=== PATIENT | male | born 1960 | race Caucasian/White ===

== ENCOUNTER 2019-07-24 14:28 | Emergency (ER) | payer OTHER ==
[~2019-07-24] VITALS: Ht 180.3 cm; Wt 80.7 kg
[2019-07-24 14:33] VITALS: BP 178/99
[2019-07-24 15:21] LABS: ABSOLUTE EOSINOPHILS 0.2 thou/uL (0.0-0.7); ABSOLUTE LYMPHOCYTES 1.1 thou/uL (0.8-5.3); ABSOLUTE MONOCYTES 0.9 thou/uL (0.0-1.2); ABSOLUTE NEUTROPHILS 4.1 thou/uL (1.6-8.1); BASOPHILS 0.7 %; EOSINOPHILS 3.1 %; HEMATOCRIT 40.5 % (42.0-52.0); HEMOGLOBIN 14.1 gm/dL (14.0-18.0); LYMPHOCYTES 17.6 %; MCH 34.3 pg (26.0-34.0); MCHC 34.7 g/dL (28.0-37.0); MCV 98.6 fL (80.0-100.0); MONOCYTES 13.6 %; MPV 6.6 fl. (7.2-11.1); NUCLEATED RBCS 0 /100WBC; PLATELET COUNT* 157 thou/uL (150-400); RDW-CV 14.5 % (10.5-14.5); WBC 6.4 thou/uL (4.0-11.0)
[2019-07-24 15:26] LABS: CALCIUM 8.3 mg/dL (8.5-10.1); CREATININE 0.6 mg/dL (0.6-1.3); POTASSIUM 3.4 mmol/L (3.5-5.1)
[2019-07-24 15:32] LABS: URINE BILIRUBIN NEGATIVE (Negative); URINE BLOOD TRACE (Negative); URINE CLARITY CLEAR; URINE COLOR YELLOW; URINE GLUCOSE-RANDOM NEGATIVE (Negative); URINE KETONES NEGATIVE (Negative); URINE LEUKOCYTES-REFLEX NEGATIVE (Negative); URINE NITRITE-REFLEX NEGATIVE (Negative); URINE PROTEIN 1+ (Negative); URINE UROBILINOGEN 0.2 E.U./dl (0.2-1.0)
[2019-07-24 15:37] LABS: ALBUMIN 3.7 g/dL (3.4-5.0); TOTAL BILIRUBIN 0.2 mg/dL (<0.1-1.0); TOTAL PROTEIN 7.7 g/dL (6.4-8.2)
[2019-07-24 15:41] LABS: AMP/METHAMP Negative (Negative); BARBITURATES Negative (Negative); BENZODIAZEPINES Negative (Negative); COCAINE Negative (Negative); METHADONE Negative (Negative); OPIATES Negative (Negative); PCP Negative (Negative); THC Negative (Negative)
[2019-07-24] MEDS ORDERED: KEFLEX500 M2 PO (17:38)
[2019-07-24 18:01] VITALS: BP 143/80
--- NOTE | 2019-07-31 14:58 | EKG ---
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: : 1960 Requested By: Silvia Velásquez Order Number: [id number] MD: Jenaro Marks Measurements Intervals [place] Rate: 95 P: [place]: QRS: 53 QRSD: 92 T: 44 QT: 336 QTc: 423 Interpretive Statements sinus rhythm Baseline wander in lead(s) V3 No previous ECG available for comparison Electronically Signed On 07-25-2019 12:52:15 DELIVERY HELPER by Jenaro Marks [email or web address] <ELECTRONICALLY SIGNED> By: Jenaro Marks MD, [facility] 07/25/19 1252 1528 1528 Jenaro Marks MD, [facility] /EPI
== END 2019-07-24 18:04 | disposition left against medical advice (07) ==
LOC: M.ERS 14:28 → M.TBA-ER 16:41 → M.ERS 16:41
PROVIDERS: Physician Assistant
DX: L03.116 Cellulitis of left lower limb (principal); L03.115 Cellulitis of right lower limb; F10.129 Alcohol abuse with intoxication, unspecified; E87.2 Acidosis; R79.1 Abnormal coagulation profile; I10 Essential (primary) hypertension; F17.210 Nicotine dependence, cigarettes, uncomplicated; Y90.8 Blood alcohol level of 240 mg/100 ml or more

== ENCOUNTER 2019-11-04 09:54 | Inpatient (IN) | payer OTHER ==
[~2019-11-04] VITALS: Ht 182.9 cm; Wt 62.6 kg
--- NOTE | ~2019-11-04 | PROC ---
[address] [address] PROCEDURE REPORT Name: SUNDAR ANTOINE Room: [address] IN M.R.#: [id number] Admission: 11/04/19 Attend Phys: Deana Yeung MD Discharge: 11/06/19 Date of : 62 Report #: [id number] THIS REPORT FOR: //name// cc: Laly Bains MD, Diane S. MD ~ THIS REPORT FOR: //name// For GI report, please see the Provation report in Perceptive 7 content. By: 1038Medical Records Staff NINA /NOREEN
[~2019-11-04 09:54] MED LIST: KEFLEX500 M2 PO
[2019-11-04 09:58] VITALS: BP 109/87
[2019-11-04] MEDS ORDERED: KLOR-CON 10 ER10 MEQ PO (10:00)
[2019-11-04 10:28] LABS: ABSOLUTE LYMPHOCYTES 0.4 thou/uL (0.8-5.3); ABSOLUTE MONOCYTES 0.5 thou/uL (0.0-1.2); ABSOLUTE NEUTROPHILS 2.5 thou/uL (1.6-8.1); BASOPHILS 0.4 %; EOSINOPHILS 0.4 %; HEMATOCRIT 22.6 % (42.0-52.0); HEMOGLOBIN 7.2 gm/dL (14.0-18.0); LYMPHOCYTES 11.4 %; MCH 31.6 pg (26.0-34.0); MCHC 31.9 g/dL (28.0-37.0); MCV 98.9 fL (80.0-100.0); MONOCYTES 14.7 %; MPV 8.1 fl. (7.2-11.1); NUCLEATED RBCS 0 /100WBC; PLATELET COUNT* 214 thou/uL (150-400); POLYS 73.1 %; RBC 2.29 mil/uL (4.50-6.00); RDW-CV 21.9 % (10.5-14.5); WBC 3.5 thou/uL (4.0-11.0)
[2019-11-04 10:42] LABS: CALCIUM 7.3 mg/dL (8.5-10.1); CREATININE 0.9 mg/dL (0.6-1.3)
[2019-11-04 10:43] LABS: POTASSIUM 2.5 mmol/L (3.5-5.1)
[2019-11-04 10:59] LABS: HYPOCHROMASIA 2+; PLATELET ESTIMATE ADEQUATE
[2019-11-04 11:00] LABS: MICROCYTES 2+
--- NOTE | 2019-11-04 11:21 | NUR ---
IV INSERTED BY NITO MARTINS RN
[2019-11-04 12:00] LABS: ALBUMIN 2.5 g/dL (3.4-5.0); DIRECT BILIRUBIN 0.5 mg/dL (<0.1-0.3); TOTAL BILIRUBIN 1.1 mg/dL (<0.1-1.0); TOTAL PROTEIN 6.5 g/dL (6.4-8.2)
--- NOTE | 2019-11-04 14:20 | NUR ---
BLOOD TRANSFUSION STARTED AT 1357. SEE PAPER TRANSFUSION RECORD.
[2019-11-04 15:28] VITALS: BP 108/71
--- NOTE | 2019-11-04 17:10 | EKG ---
[place] [address] ELECTROCARDIOGRAM REPORT Name: CRUZ ANTOINEALL Room: [place] [address] ADM IN [facility]#: [id number] Admission: 11/04/19 Attend Phys: Deana Yeung, Discharge: Date of : 62 Date of Service: 11/04/19 1125 Report #: [id number] THIS REPORT FOR: //name// 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: : 1960 Requested By: Phillip Mercado Order Number: [id number] MD: Twan Hernandez Measurements Intervals [place] Rate: 97 P: 77 IN: 150 QRS: 55 QRSD: 78 T: 43 QT: 273 QTc: 347 Interpretive Statements Sinus rhythm Abnormal R-wave progression, early transition Borderline repolarization abnormality Compared to ECG 07/24/2019 15:28:14 No significant changes Electronically Signed On 11-04-2019 17:09:39 CDT by Twan Hernandez [email or web address] <ELECTRONICALLY SIGNED> By: Twan Hernandez MD, [facility] 11/04/19 1709 1125 1125 Twan Hernandez MD, [facility] /EPI
[2019-11-04 19:21] LABS: HEMATOCRIT 22.5 % (42.0-52.0); HEMOGLOBIN 7.5 gm/dL (14.0-18.0)
[2019-11-04 19:29] LABS: CREATININE 0.8 mg/dL (0.6-1.3)
[2019-11-04 19:31] LABS: POTASSIUM 2.8 mmol/L (3.5-5.1)
[2019-11-04 19:55] VITALS: BP 100/62
[2019-11-04 20:30] VITALS: BP 104/58
[2019-11-04 23:26] VITALS: BP 100/60; BP 103/82; BP 106/77; BP 85/57
[2019-11-05 00:32] LABS: AMP/METHAMP Negative (Negative); BARBITURATES Negative (Negative); BENZODIAZEPINES Negative (Negative); COCAINE Negative (Negative); METHADONE Negative (Negative); OPIATES Negative (Negative); PCP Negative (Negative); THC Negative (Negative)
[2019-11-05 04:04] VITALS: BP 96/65
[2019-11-05 05:01] LABS: HEMATOCRIT 26.8 % (42.0-52.0); HEMOGLOBIN 8.9 gm/dL (14.0-18.0); MCHC 33.3 g/dL (28.0-37.0); MCV 95.9 fL (80.0-100.0); MPV 8.2 fl. (7.2-11.1); RBC 2.79 mil/uL (4.50-6.00); RDW-CV 19.3 % (10.5-14.5); WBC 4.7 thou/uL (4.0-11.0)
[2019-11-05 05:15] LABS: CALCIUM 6.8 mg/dL (8.5-10.1); CREATININE 0.9 mg/dL (0.6-1.3); MAGNESIUM 2.3 mg/dL (1.8-2.4); TOTAL BILIRUBIN 0.6 mg/dL (<0.1-1.0); TOTAL PROTEIN 5.1 g/dL (6.4-8.2)
[2019-11-05 05:16] LABS: POTASSIUM 2.8 mmol/L (3.5-5.1)
--- NOTE | 2019-11-05 05:44 | NUR ---
PATIENT PARTIALLY PROGRESSING TOWARDS GOALS: PATIENT TOLERATED BLOOD TRANSFUSION WITH IMPROVEMENT IN HBG. MAGNESIUM NOW WNL AFTER REPLACEMENT. POTASSIUM REMAINS LOW. REPLACEMENT IN PROGRESS. PATIENT DENIES PAIN WHILE IN THE BED. STATES HIS LEGS ONLY HURT WHEN HE TRIES TO USE THEM. PATIENT VOIDING PER URINAL. CALL LIGHT WITHIN REACH
[2019-11-05 12:09] VITALS: BP 87/58
--- NOTE | 2019-11-05 16:35 | NUR ---
PT HAD ATIVAN SEVERAL TIME AND CONTINUED WITH BANANA BAG. WILL HAVE EGD IN THE AM.
[2019-11-05 17:32] VITALS: BP 100/62
[2019-11-05 20:00] VITALS: BP 95/61
[2019-11-06] VITALS: BP 100/60
[2019-11-06 04:00] VITALS: BP 105/72
[2019-11-06 04:47] LABS: HEMATOCRIT 25.6 % (42.0-52.0); HEMOGLOBIN 8.6 gm/dL (14.0-18.0); MCH 32.3 pg (26.0-34.0); MCHC 33.4 g/dL (28.0-37.0); MCV 96.5 fL (80.0-100.0); MPV 8.4 fl. (7.2-11.1); RBC 2.66 mil/uL (4.50-6.00); RDW-CV 19.3 % (10.5-14.5); WBC 4.2 thou/uL (4.0-11.0)
[2019-11-06 05:39] LABS: CALCIUM 7.4 mg/dL (8.5-10.1); CREATININE 0.7 mg/dL (0.6-1.3); MAGNESIUM 1.7 mg/dL (1.8-2.4); POTASSIUM 3.8 mmol/L (3.5-5.1); TOTAL BILIRUBIN 0.4 mg/dL (<0.1-1.0); TOTAL PROTEIN 5.1 g/dL (6.4-8.2)
--- NOTE | 2019-11-06 05:51 | NUR ---
No acute event this shift. Pt denies pain. Pt Sinus tach on tele. CIWA scored 2. Pt sleep most of the night. Pt NPO for EDG (per GI note). Will continue to monitor.
[2019-11-06 08:00] VITALS: BP 129/74
[2019-11-06] MEDS ORDERED: FOLIC ACID1 MG PO (13:04)
[2019-11-06] MEDS ORDERED: PROTONIX40 M1 PO (13:04)
[2019-11-06] MEDS ORDERED: IRON325 PO (13:08)
[2019-11-06 15:45] VITALS: BP 129/74
--- NOTE | 2019-11-06 19:06 | NUR ---
PT.TO BE DISCHARGED TODAY. SAID HE LIVES ALONE. HAS A NEIGHBOR THAT HELPS HIM SOME. HE COULD NOT GET AHOLD OF HIM TO COME TO GET HIM FROM HOSPITAL. HOSPITAL TO PROVIDE TAXI VOUCHER. PT. SAID LEGS HURT ALOT. NO DME. HE IS UNEMPLOYED. GAVE HIM COMMUNITY RESOURCE INFORMATION,FIND A PHYSICIAN,MEDICATION ASSIST AND ALCOHOL DEPENDENCE INFORMATION. PT.SAID HE DOES NOT DRINK ALOT. ALSO GAVE HIM GOOD RX DRUG CARD. HE SAID HE HAS USED THOSE IN THE PAST. HE SAID HE DOESN'T REALLY HAVE ANY FAMILY OR SUPPORTIVE FRIENDS BESIDES NEIGHBOR. [employer] 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
--- NOTE | 2019-11-06 20:36 | NUR ---
PT. AOX4, VSS, SR-ST O NMONITOR, DENIES PAIN, WAS INCONTINENT OF BOWEL AT START OF SHIFT. PT. WAS CLEANED UP, BED CHANGED. DISCHARGE ORDERS RECEIVED. MEDICATIONS, DIET AND ACTIVITY RESTRICTIONS EXPLAINED AND PT VERBALIZED UNDERSTANDING. NEW SCRIPT SENT. PIV DCED BY NURSING STAFF WITHOUT COMPLICATIONS. PT. LEFT FLOOR BY WC WITH NURSING STAFF, WITH PERSONAL BELONGINGS AND PICKED UP BY CAB AT ER ENTRANCE TO HOME. PT. IN STABEL CONDITION AT TIME OF DISCHARGE.
--- NOTE | 2019-11-09 15:08 | PATH ---
[address] [address] PATHOLOGY RPT PROCEDURE Name: EMELYNSUNDAR FLORES Room: [address] IN M.R.#: [id number] Admission: 11/04/19 Date of : 62 Discharge: 11/06/19 Report #: [id number] Path Case #: [id number] LCA Accession Number: [id number] . 01 Material submitted: . PART A: duodenum - DUODENAL BIOPSY PART B: stomach - GASTRIC BIOPSY . 01 Clinical history: . Hypokalemia, anemia A. Rule out adenoma. B. Rule out H. pylori. . 02 Diagnosis: A. Duodenal biopsy: - Benign duodenal mucosa with prominence of Chan's glands suggesting hyperplasia, negative for dysplasia/adenomatous change. . B. Gastric biopsy: - Mild non-specific chronic gastritis suggesting reactive gastropathy (chemical gastritis), negative for Helicobacter pylori organisms and dysplasia. (JAYLEN/db; 11/09/2019) . Special stain on B: H. pylori immuno LBQ 11/09/2019 1248 Local . 02 Electronically signed: . Ravinder Wilcox MD, Pathologist NPI- [id number] . 01 Gross description: . A. The specimen is received in formalin, labeled "Sundar Hester, duodenal BX rule out adenoma" and consists of 2 fragments of chun tissue measuring 0.6 x 0.3 x 0.2 cm in aggregate which are entirely submitted in A1. . B. The specimen is received in formalin, labeled "Sundar Hester, gastric biopsy rule out H. pylori" and consists of a fragment of chun tissue measuring 0.5 x 0.3 x 0.2 cm which is entirely submitted in B1. (SANTI; 11/06/2019) JFQ/JAMES 11/06/20192030 Local . 02 Pathologist provided ICD-10: K29.50, E87.6, D64.9 . 02 CPT . 763245, [id number], [id number] [place] [address] PATHOLOGY RPT PROCEDURE Name: SUNDAR HESTER Room: [address] IN M.R.#: [id number] Admission: 11/04/19 Date of : 62 Discharge: 11/06/19 Report #: [id number] Path Case #: [id number] Specimen Comment: A courtesy copy of this report has been sent to [phone] Specimen Comment: Report sent to ,DR UNGER / DR CORADO Performed at: [address], [place], [place] [id number] MD Blaine Garay MD Phone: [phone] Performed at: 02 [facility] [address], [place], [place] [id number] MD Ravinder Wilcox MD Phone: [phone]
--- NOTE | 2019-11-20 13:50 | CON ---
[address] [address] CONSULTATION Name: SUNDAR ANTOINE Room: [address] IN .R.#: [id number] Admission: 11/04/19 Attend Phys: Deana Yeung MD Discharge: 11/06/19 Date of : 62 Report #: [id number] THIS REPORT FOR: //name// cc: Laly Bains MD, Diane S. MD ~ THIS REPORT FOR: //name// CC: Laly Yeung DATE OF SERVICE: 11/05/2019 REASON FOR CONSULT: Anemia. HISTORY OF PRESENT ILLNESS: This is a 59-year-old male with generalized malaise and anemia, who presented to hospital by ambulance for bilateral leg pain. The patient found to be anemic with hemoglobin of 7.5. He denies any hematochezia or melena and reports that he has had a colonoscopy many years ago and does not remember when and what the findings were. The patient lives alone and admits to smoking and occasionally drinking alcohol. PAST MEDICAL HISTORY: Significant for hypertension, alcohol abuse, tobaccoism. ALLERGIES: No known drug allergy. MEDICATIONS: Please refer to MAR. SOCIAL HISTORY: The patient lives at home alone. Admits to smoking and occasional drinking. FAMILY HISTORY: Noncontributory. PHYSICAL EXAMINATION: VITAL SIGNS: Reveals blood pressure of 96/65, respirations 17, pulse 99, temperature 97.9. LUNGS: Clear. CARDIOVASCULAR: Regular. ABDOMEN: Soft, nontender, nondistended. Bowel sounds are positive. LABORATORY DATA: Reveal sodium of 130, potassium 2.8, BUN is 11, creatinine 0.9. AST is 12, ALT 9, alkaline phosphatase is 80. Iron saturation is 15 with serum iron of 32. Folic acid is 4.5. WBC is 4.7 with hemoglobin of 8.9, up from 7.2 on admission. Platelet is 181. IMAGING: CT of abdomen and pelvis was obtained on admission. There were calcified disk fragments at L4 and L5 consistent [place] [address] CONSULTATION Name: ELINACRUZSUNDAR Room: [address] IN .R.#: [id number] Admission: 11/04/19 Attend Phys: Deana Yeung MD Discharge: 11/06/19 Date of : 62 Report #: [id number] protrusion. 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 There is also diffuse fatty infiltration of liver and distal small bowel, which appears thickened with normal appendix and colon. ASSESSMENT AND PLAN: The patient with anemia and electrolyte imbalance with low magnesium and potassium, whose blood pressure is soft. We will go ahead and schedule him for upper scope tomorrow and consider colonoscopy when he is more stable. The patient is agreeable with the plan. He needs his folic acid and iron replaced. We will make further recommendation after his upper scope. <ELECTRONICALLY SIGNED> By: Kirstin Greene MD 11/20/19 1350 1220 1231Kirstin Greene MD /nt
== END 2019-11-06 18:20 | disposition home or self-care (01) | DRG 392 ==
LOC: M.ERS 09:54 → M.TBA-ER 11:15 → M.2W 11:15
PROVIDERS: Emergency Medicine Emergency Medical Services; Personal Emergency Response Attendant; ADMIT Internal Medicine; ATTEND Internal Medicine
PROC: 30233N1 Transfusion of Nonautologous Red Blood Cells into Peripheral Vein, Percutaneous Approach (ICD-10-PCS; principal; 2019-11-04)
PROC: 0DB68ZX Excision of Stomach, Via Natural or Artificial Opening Endoscopic, Diagnostic (ICD-10-PCS; 2019-11-06)
DX: K29.70 Gastritis, unspecified, without bleeding (principal); I10 Essential (primary) hypertension; E87.6 Hypokalemia; D64.9 Anemia, unspecified; F17.210 Nicotine dependence, cigarettes, uncomplicated; D50.9 Iron deficiency anemia, unspecified; Z60.2 Problems related to living alone; Z79.899 Other long term (current) drug therapy

== ENCOUNTER 2019-12-18 11:07 | Inpatient (IN) | payer OTHER ==
[2019-12-18] VITALS (69 sets, daily range): BP systolic 61–128; BP diastolic 34–95
[~2019-12-18] VITALS: Ht 170.2 cm; Wt 73.0 kg
[~2019-12-18 11:07] MED LIST changes: +FOLIC ACID1 MG PO; +IRON325 PO; +KLOR-CON 10 ER10 MEQ PO; +PROTONIX40 M1 PO
[2019-12-18 12:12] LABS: ABSOLUTE LYMPHOCYTES 0.3 thou/uL (0.8-5.3); ABSOLUTE MONOCYTES 0.7 thou/uL (0.0-1.2); ABSOLUTE NEUTROPHILS 4.9 thou/uL (1.6-8.1); BASOPHILS 0.1 %; EOSINOPHILS 0.1 %; LYMPHOCYTES 5.8 %; MCH 31.2 pg (26.0-34.0); MCHC 33.9 g/dL (28.0-37.0); MCV 92.1 fL (80.0-100.0); MONOCYTES 11.8 %; MPV 7.4 fl. (7.2-11.1); NUCLEATED RBCS 1 /100WBC; PLATELET COUNT* 194 thou/uL (150-400); POLYS 82.2 %; RBC 0.94 mil/uL (4.50-6.00); RDW-CV 22.1 % (10.5-14.5)
[2019-12-18 12:20] LABS: HEMOGLOBIN 2.9 gm/dL (14.0-18.0)
[2019-12-18 12:21] LABS: HEMATOCRIT 8.7 % (42.0-52.0)
[2019-12-18 12:24] LABS: APTT 25.7 Seconds (25.0-31.3); INR 1.1; PROTIME 11.8 Seconds (9.20-11.50)
[2019-12-18 12:31] LABS: CALCIUM 6.8 mg/dL (8.5-10.1); CREATININE 5.3 mg/dL (0.6-1.3)
[2019-12-18 12:32] LABS: URINE BLOOD NEGATIVE (Negative); URINE CLARITY CLEAR; URINE COLOR YELLOW; URINE GLUCOSE-RANDOM TRACE (Negative); URINE KETONES TRACE (Negative); URINE LEUKOCYTES-REFLEX NEGATIVE (Negative); URINE PROTEIN 1+ (Negative); URINE SPECIFIC GRAVITY 1.025 (1.005-1.030)
[2019-12-18 12:35] LABS: ICTOTEST (BILI CONFIRMATORY) Positive (Negative); URINE BILIRUBIN 3+ (Negative); URINE NITRITE-REFLEX POSITIVE (Negative)
[2019-12-18 12:43] LABS: ALBUMIN 2.2 g/dL (3.4-5.0); TOTAL BILIRUBIN 1.8 mg/dL (<0.1-1.0); TOTAL PROTEIN 5.5 g/dL (6.4-8.2)
[2019-12-18 12:43] LABS: SQUAMOUS 4-10 Moderate /LPF (0-3); URINE WBC-REFLEX 0-5 Rare /HPF (0-5)
[2019-12-18 12:44] LABS: POTASSIUM 2.4 mmol/L (3.5-5.1)
[2019-12-18 12:44] LABS: CASTS None Seen /LPF (None Seen); MUCUS None Seen strn/LPF (None Seen); URINE RBC 0-2 Rare /HPF (0-2)
[2019-12-18 13:25] LABS: CRYSTALS None Seen /LPF (None Seen)
[2019-12-18 13:51] LABS: BE -9.3 mmol/L (-2 to +3); PCO2 35.1 mmHg (35.0-45.0)
[2019-12-18 13:55] LABS: PO2 > 488.8 mmHg (75.0-100.0); pH 7.289 (7.340-7.450)
--- NOTE | 2019-12-18 14:01 | NUR ---
PT NEIGHBOR WHO CALLED EMS ASKS FOR UPDATE ON PT IF POSSIBLE, EXPLAINED TO NEIGHBOR THERE IS NOT A LOT WE CAN TELL HER R/T NO DOCUMENTATION OF HER EMERGENCY CONTACT. NAME IS AMELIA AT [phone]
--- NOTE | 2019-12-18 15:17 | EKG ---
[place] [address] ELECTROCARDIOGRAM REPORT Name: CRUZ ANTOINEALL Room: [address] ADM IN M.R.#: [id number] Admission: 12/18/19 Attend Phys: Obdulia Castaneda Discharge: Date of : 62 Date of Service: 12/18/19 1109 Report #: [id number] THIS REPORT FOR: //name// [facility] ED Test Date: 2019-12-18 Test Time: 11:09:31 Pat Name: SUNDAR ANTOINE Department: Room: 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 Service: : 1960 Requested By: Phillip Mercado Order Number: [id number] MD: Twan Hernandez Measurements Intervals [place] Rate: 107 P: 70 IN: 149 QRS: 65 QRSD: 72 T: 236 QT: 307 QTc: 410 Interpretive Statements Sinus tachycardia Abnormal R-wave progression, early transition Repol abnrm suggests ischemia, diffuse leads Compared to ECG 11/04/2019 11:25:20 Possible ischemia now present Sinus rate has increased Electronically Signed On 12-18-2019 15:16:56 CDT by Twan Hernandez [email or web address] <ELECTRONICALLY SIGNED> By: Twan Hernandez MD, [facility] 12/18/19 1516 1109 1109 Twan Hernandez MD, FAC /EPI
--- NOTE | 2019-12-18 17:22 | NUR ---
1430 PT ADMITTED TO ICU FROM ER UNRESPONSIVE AND UNSEDATED. SEE ADMISSION ASSESSMENT AND HISTORY.
--- NOTE | 2019-12-18 17:46 | NUR ---
PATIENT ADMITTED THIS AFTERNOON UNRESPONSIVE. PT NOW FLUTTERS HIS EYES TO PAIN. MTN HAS BEEN NOTIFIED DUE TO DOLORES SCORE. PT UNSEDATED AND UNRESTRAINED ON VENT. BLOOD PRESSURE SUPPORTED WITH LEVOPHED. TWO UNITS OF PACKED CELLS INFUSED AND WILL REDRAW LAB. NO FAMILY SUPPORT AVAILABLE AT THIS TIME.
[2019-12-18 18:13] LABS: BE -5.8 mmol/L (-2 to +3); PCO2 34.5 mmHg (35.0-45.0); PO2 76.1 mmHg (75.0-100.0); pH 7.359 (7.340-7.450)
[2019-12-18 19:11] LABS: HEMATOCRIT 21.1 % (42.0-52.0)
[2019-12-18 19:16] LABS: CALCIUM 6.8 mg/dL (8.5-10.1); CREATININE 5.2 mg/dL (0.6-1.3)
[2019-12-18 19:22] LABS: POTASSIUM 2.9 mmol/L (3.5-5.1)
[2019-12-18 21:02] LABS: BE -0.4 mmol/L (-2 to +3); PCO2 36.1 mmHg (35.0-45.0); pH 7.435 (7.340-7.450)
[2019-12-18 21:04] LABS: PO2 142.3 mmHg (75.0-100.0)
[2019-12-19] VITALS (103 sets, daily range): BP systolic 60–128; BP diastolic 32–83
--- NOTE | 2019-12-19 00:05 | NUR ---
DR. SAN ORDERED 10 MG OLANZAPINE TO BE GIVEN IV TO PATIENT FOR AGITATION. MEDICATION NORMALLY IS ONLY GIVEN IM. VETERINARIAN EPIDEMIOLOGIST EDWIGE AND I CALLED PHARMACY AND SPOKE WITH PHARMACIST ALBA ABOUT THE ORDER. PER DR. SAN, MEDICATION WAS SAFE TO BE GIVEN THIS ROUTE, AND PHARMACY CLEARED MED TO BE GIVEN IV. DOSE GIVEN TO PATIENT IV, NO ADVERSE REACTIONS OR SIDE EFFECTS NOTED AT THIS TIME. [facility]
[2019-12-19 04:02] LABS: MCH 30.5 pg (26.0-34.0); MPV 6.8 fl. (7.2-11.1); RBC 2.13 mil/uL (4.50-6.00); RDW-CV 16.6 % (10.5-14.5); WBC 7.4 thou/uL (4.0-11.0)
[2019-12-19 04:18] LABS: CALCIUM 6.8 mg/dL (8.5-10.1); CREATININE 4.4 mg/dL (0.6-1.3); MAGNESIUM 1.3 mg/dL (1.8-2.4)
[2019-12-19 06:00] LABS: MCV 87.1 fL (80.0-100.0)
[2019-12-19 06:02] LABS: HEMATOCRIT 18.6 % (42.0-52.0); HEMOGLOBIN 6.5 gm/dL (14.0-18.0); POTASSIUM 2.9 mmol/L (3.5-5.1)
--- NOTE | 2019-12-19 07:33 | NUR ---
ASSESSMENTS CHARTED. PATIENT EXTUBATED AT 2117. RESPIRATORY STATUS STABLE. HGB AND POTASSIUM STILL CRITICALLY LOW. ORDERS OBTAINED FROM DR. SAN. PATIENT BECAME MORE IMPULSIVE THROUGHOUT THE SHIFT. PLACED IN MITTS TO PREVENT PULLING AT LINES AND TUBES. LEVOPHED TITRATED UP TO 17 MCG/MIN. BLOOD PRODUCTS ORDERED AND TO BE ADMINISTERED ON DAY SHIFT.
--- NOTE | 2019-12-19 11:20 | EKG ---
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 Assistant: MARY BETH : 1960 Requested By: Obdulai Castaneda Order Number: [id number] MD: Twan Hernandez Measurements Intervals [place] Rate: 103 P: 72 [place]: 149 QRS: 50 QRSD: 69 T: 228 QT: 303 QTc: 397 Interpretive Statements Sinus tachycardia Repol abnrm suggests ischemia, anterolateral Compared to ECG 12/18/2019 11:09:31 No significant changes Electronically Signed On 12-19-2019 11:20:34 CDT by Twan Hernandez [email or web address] <ELECTRONICALLY SIGNED> By: Twan Hernandez MD, [facility] 12/19/19 1120 0256 0256 Twan Hernandez MD, [facility] /EPI
[2019-12-19 11:27] LABS: URINE BLOOD 3+ (Negative); URINE CLARITY CLEAR; URINE COLOR YELLOW; URINE GLUCOSE-RANDOM NEGATIVE (Negative); URINE KETONES NEGATIVE (Negative); URINE LEUKOCYTES-REFLEX TRACE (Negative); URINE NITRITE-REFLEX NEGATIVE (Negative); URINE PROTEIN TRACE (Negative); URINE SPECIFIC GRAVITY <= 1.005 (1.005-1.030)
[2019-12-19 11:28] LABS: URINE BILIRUBIN 1+ (Negative)
[2019-12-19 11:29] LABS: ICTOTEST (BILI CONFIRMATORY) Negative (Negative)
[2019-12-19 11:34] LABS: SQUAMOUS 4-10 Moderate /LPF (0-3); URINE WBC-REFLEX 0-5 Rare /HPF (0-5)
[2019-12-19 11:35] LABS: AMP/METHAMP Negative (Negative); BACTERIA-REFLEX >30 Many /HPF (None Seen); BARBITURATES Negative (Negative); BENZODIAZEPINES POSITIVE (Negative); COCAINE Negative (Negative); METHADONE Negative (Negative); MUCUS 0-3 Light strn/LPF (None Seen); OPIATES Negative (Negative); PCP Negative (Negative); THC Negative (Negative); URINE RBC 3-10 Few /HPF (0-2)
[2019-12-19 11:36] LABS: CRYSTALS None Seen /LPF (None Seen); FINE GRANULAR CASTS 0-3 Few /LPF (None Seen); HYALINE CASTS 4-10 Moderate /LPF (None Seen)
[2019-12-19 14:52] LABS: ABSOLUTE LYMPHOCYTES 0.5 thou/uL (0.8-5.3); ABSOLUTE NEUTROPHILS 6.8 thou/uL (1.6-8.1); BASOPHILS 0.3 %; EOSINOPHILS 0.2 %; HEMATOCRIT 27.6 % (42.0-52.0); HEMOGLOBIN 9.6 gm/dL (14.0-18.0); LYMPHOCYTES 6.1 %; MCH 30.8 pg (26.0-34.0); MCV 88.1 fL (80.0-100.0); MONOCYTES 11.8 %; MPV 7.2 fl. (7.2-11.1); NUCLEATED RBCS 1 /100WBC; PLATELET COUNT* 170 thou/uL (150-400); POLYS 81.6 %; RBC 3.13 mil/uL (4.50-6.00); RDW-CV 15.7 % (10.5-14.5); WBC 8.4 thou/uL (4.0-11.0)
[2019-12-19 14:56] LABS: INR 1.1; PROTIME 11.6 Seconds (9.20-11.50)
[2019-12-19 15:03] LABS: ALBUMIN 1.9 g/dL (3.4-5.0); PHOSPHORUS* 2.8 mg/dL (2.5-4.9); POTASSIUM 3.1 mmol/L (3.5-5.1); TOTAL BILIRUBIN 2.2 mg/dL (<0.1-1.0); TOTAL PROTEIN 5.4 g/dL (6.4-8.2)
[2019-12-19 15:12] LABS: CALCIUM 7.5 mg/dL (8.5-10.1); MAGNESIUM 1.9 mg/dL (1.8-2.4)
[2019-12-19 15:15] LABS: CREATININE 2.8 mg/dL (0.6-1.3)
--- NOTE | 2019-12-19 18:47 | NUR ---
PT DROWSY AND SOMNOLENT WHOLE DAY, RESPONSIVE TO VERBAL QUESTIONS. TWO UNITS OF PRBC TRANSFUSED. POST TRANSFUSION HB 9.6. LEVOPHED TITRATED PER PROTOCOL. ELECTROLYTE REPLACED PER PROTOCOL. GI CONSULT CALLED. WOUNDS CLEANSED AND DRESESED WITH MEPILEX. Q2 TURNS AND ORAL CARE GIVEN.
--- NOTE | 2019-12-19 19:00 | NUR ---
RECEIVED REPORT FROM DAY RN AND ASSUMED PT CARE
[2019-12-20] VITALS (125 sets, daily range): BP systolic 65–127; BP diastolic 40–105
[2019-12-20 04:45] LABS: HEMATOCRIT 28.1 % (42.0-52.0); HEMOGLOBIN 9.6 gm/dL (14.0-18.0); MCH 30.7 pg (26.0-34.0); MCHC 34.1 g/dL (28.0-37.0); MCV 90.2 fL (80.0-100.0); MPV 7.6 fl. (7.2-11.1); RBC 3.12 mil/uL (4.50-6.00); WBC 7.4 thou/uL (4.0-11.0)
--- NOTE | 2019-12-20 06:38 | NUR ---
SHIFT SUMMARY: PATIENT PRESSURE HAS BEEN LABILE ALL SHIFT LEVOPHED GTT INITIALLY AT 15MCG/MIN AND WAS TITRATED TO 14 MCG/MIN BUT WAS INCREASED TO 18MCG/MIN SHORTLY AFTER PT COMPLETED AN ORDERED BANANA BAG AT 100CC/HR IN ADDITION TO A MAINTANENCE IVF @ 100CC/HR. HIS PRESSURES CONT'D LABILE AND REQUIRED INCREMENTAL INCREASES IN LEVOPHED TO THE CURRENT RATE OF 24MCG/MIN. PRESSURES HAVE RANGED FROM 77-110/40-60'S. i HAVE TITRATED TO A MAP MINIMUM OF 65 AND AM CURRENTLY HOLDING THIS DOSE RELATED TO CHANGES IN PERIPHERAL CIRCULATION AND PULSE AMPLITUDE. CURRENT B/P 95/61 (74) HE HAS DEVELOPED 2+PITTING EDEMA IN THE RIGHT FOOT/ANKLE ONLY AND HIS LE'S ARE DARKENING SOMEWHAT. HE HAS A LOW THRESHOLD FOR THE SCHEDULED ATIVAN IV IN MAINTAINING A STABLE PRESSURE. HIS TEMPERATURE HAS ALSO VACCILATED FROM 98-99.1 HE HAS BEEN PREDOMINANTLY SINUS TACHYCARDIA 100-110'S WITH ONE EPISODE OF POSSIBLE AFIB WITH A RATE IN THE 120'S FEW 2-3 MINUTES. hIS BREATH SOUNDS ARE COARSE AND HE DOES NOT COUGH OR EXPECTORATE. HIS CIWA IS LOW BUT HE'S ON SCHEDULED ATIVAN. HE HAS BEEN APPROPRIATE WITH ME ALL SHIFT. POTASSIUM REMAINED LOW AFTER DAY SHIFT REPLACEMENT (3.1) I HAVE GIVEN AN ADDITIONAL 80MEQ WITH THE LAST BAG CURRENTLY HANGING. LABS ARE STILL PENDING AND WILL NOT REFLECT HIS CURRENT K LEVEL. URINE OUTPUT 1560 AND IS NET POSITIVE 1744CC THIS SHIFT. NO STOOLS. CONTINUES ON PROTONIX GTT 8MG/HR AND ADDITIONAL MEDS ORDERED. REPORT GIVEN TO TOMAS DAY SHIFT RN
[2019-12-20 07:07] LABS: CALCIUM 7.4 mg/dL (8.5-10.1); MAGNESIUM 1.6 mg/dL (1.8-2.4); PHOSPHORUS* 2.7 mg/dL (2.5-4.9)
[2019-12-20 07:14] LABS: CREATININE 1.6 mg/dL (0.6-1.3); POTASSIUM 4.3 mmol/L (3.5-5.1)
--- NOTE | 2019-12-20 19:00 | NUR ---
RECEIVED REPORT FROM DAY RN AND ASSUMED CARE
--- NOTE | 2019-12-20 19:44 | NUR ---
PT AROUSES TO VERBAL QUESTIONS AND PAIN, ORIENTED TO PLACE AND PERSON. LEVOPHED TITRATED PER PROTOCOL. MAG REPLACED. 2ND BANANA BAG RUNNING. PROTONIX DRIP DC'd PER GI. PT TOLERATED FEW AMOUNTS OF SIPS. Q2 TURNS AND ORAL CARE GIVEN.
[2019-12-21] VITALS (76 sets, daily range): BP systolic 92–115; BP diastolic 60–84
[2019-12-21 05:49] LABS: CALCIUM 7.3 mg/dL (8.5-10.1); CREATININE 0.9 mg/dL (0.6-1.3); MAGNESIUM 1.5 mg/dL (1.8-2.4); PHOSPHORUS* 1.6 mg/dL (2.5-4.9); POTASSIUM 3.4 mmol/L (3.5-5.1)
[2019-12-21 14:09] LABS: CALCIUM 7.5 mg/dL (8.5-10.1); CREATININE 0.8 mg/dL (0.6-1.3); POTASSIUM 3.3 mmol/L (3.5-5.1)
--- NOTE | 2019-12-21 15:16 | NUR ---
ICU rounds: Extubated on 12/17. On RA. Confused and drowsy. Neighbor found down at home. Pt has an active bleed, plan colonoscopy, once more alert to complete prep. Pending ST eval. Neuro consulted d/t low Hbg at admit. CM left message for Pt's neighbor to obtain hx, awaiting call back.
--- NOTE | 2019-12-21 15:34 | NUR ---
WOUND NURSE: PATIETN SEEN TO ADDRESS MULTIPLE SKIN LESIONS ON RIGHT POPLITEAL AREA, SACRUM, LEFT HIP, AND LEFT BACK. RIGHT POPLITEAL PRESENTS A LARGE RUPTURED BULLA MEASUREING 3.0 X 7.5 X 0.1 CM. PARTIAL THICKNESS TISSUE LOSS,, MODERATE AMOUNT OF SEROUSANGUINOUS DRAINAGE. CLEANSED WITH SOAP AND WATER, RINSED WTH WATER, THEN PATTED DRY. APPLIED OPTIFOAM GENTLE AG UNDER KERLEX ROLL GAUZE. PLAN TO CHANGE EVERY 3 TO 4 DAYS AND PRN. LEFT HIP MEASURES 1.5 X 0.5 C 0.1CM. PALE YELLOWISH TISSUE IN BILL WOUND BED, NO ACTIVE DRAINAGE. LEFT BACK MEASURES 2.5 X 5.5 X 0.1 CM PINK NONGRANULATING TISSUE IN THE WOUND BED, SMALL AMOUNT OF SEROUSANGUINOUS DRAINAGE. SACRAL WOUND IS 1.0 X 1.0 X 0.1 CM. PARTIAL THICKNESS TISSUE LOSS AND PALE YELLOW IN COLOR. ALL WOUNDS CLEANSED WITH SOAP AND WATER, RINSED WITH WATER, THEN PATTED DRY. APPLIED EXUDERM LP TO EACH AND SECURED IN PLACE USING SURESITE TRANSPARENT DRESSING. PLAN TO CHANGE DRESSING EVERY 3 TO 4 DAYS ALSO.
--- NOTE | 2019-12-21 17:36 | NUR ---
PT REMAINS DROWSY BUT AROUSES TO TOUCH AND NAME.PT MUMBLES AND ISNT REALLY HAVING CONVERSATIONS.PT WORKED WITH SPEECH THERAPY AND IS RECOMMENDED TO ONLY HAVE ICE CHIPS AT THIS TIME UNTIL FURTHER EVALUATION.CIWA OF 4-6 FOR SLIGHT TREMORS AND CONFUSION.MAGNESIUM REPLACED.NEW CONSULT FOR NEUROLOGY-PLANS FOR EEG TOMORROW.PT WAS SEEN BY WOUND CARE NURSE AND HAD DRESSINGS CHANGED.FALL PRECAUTIONS IN PLACE.WILL CONTINUE TO MONITOR FOR DURATION OF SHIFT.
[2019-12-22] VITALS (63 sets, daily range): BP systolic 80–116; BP diastolic 49–77
[2019-12-22 05:11] LABS: HEMATOCRIT 24.4 % (42.0-52.0); HEMOGLOBIN 8.2 gm/dL (14.0-18.0); MCHC 33.4 g/dL (28.0-37.0); MCV 92.6 fL (80.0-100.0); MPV 7.9 fl. (7.2-11.1); RBC 2.64 mil/uL (4.50-6.00); RDW-CV 17.3 % (10.5-14.5); WBC 7.2 thou/uL (4.0-11.0)
--- NOTE | 2019-12-22 05:35 | NUR ---
PT. SOMEWHAT PROGRESSING TOWARDS GOALS. WAS ABLE TO TELL THIS RN THAT HE WAS AT [facility], ABLE TO STATE NAME AND DATE OF . MITTENS REMAIN IN PLACE. ICE CHIPS PROVIDED. REMAINS ON ROOM AIR, D5W REMAINS INFUSING. RIGHT IJ IN PLACE. LEVO GTT DOWN TO 13MCG/MIN. ONE MODERATE SIZED BM THIS SHIFT, CLEANSED. MCCRAY CATHETER REMAINS IN PLACE DRAINING DARK YELLOW/JANIS URINE. WILL CONTINUE TO MONITOR.
[2019-12-22 05:41] LABS: CALCIUM 7.3 mg/dL (8.5-10.1); CREATININE 0.7 mg/dL (0.6-1.3); MAGNESIUM 1.4 mg/dL (1.8-2.4); POTASSIUM 3.1 mmol/L (3.5-5.1)
--- NOTE | 2019-12-22 13:46 | NUR ---
ICU rounds: On pressors. PRN ativan. ST eval. Wean levophed. EEG today. Therapy evals. Pt A&Ox3, but asleep when CM went to assess. CM left another VM for Pt's neighbor. Med Assist to eval for [place] ARJUN. Following.
--- NOTE | 2019-12-22 16:40 | NUR ---
PT IS A/OX 2-3 AT TIMES,VSS ON LEVOPHED GTT.CIWA SCORE OF 10 FOR MILD HALLUCINATIONS AND CONFUSION.EEG COMPLETED.POTASSIUM REPLACED.MRSA SWAB COLLECTED.FREQUENT ORAL CARE GIVEN.PT WORKED WITH SPEECH THERAPY WITH RECOMMENDATION TO REMAIN NPO UNTIL FURTHER EVALUATION.WILL CONTINUE TO MONITOR FOR DURAITON OF SHIFT.
[2019-12-23] VITALS (60 sets, daily range): BP systolic 65–107; BP diastolic 40–80
[2019-12-23 05:40] LABS: HEMATOCRIT 23.8 % (42.0-52.0); HEMOGLOBIN 7.8 gm/dL (14.0-18.0); MCH 30.9 pg (26.0-34.0); MCHC 32.9 g/dL (28.0-37.0); MCV 93.9 fL (80.0-100.0); MPV 8.1 fl. (7.2-11.1); RBC 2.54 mil/uL (4.50-6.00); RDW-CV 19.3 % (10.5-14.5); WBC 7.5 thou/uL (4.0-11.0)
[2019-12-23 06:05] LABS: ALBUMIN 1.6 g/dL (3.4-5.0); CALCIUM 7.4 mg/dL (8.5-10.1); CREATININE 0.6 mg/dL (0.6-1.3); MAGNESIUM 1.5 mg/dL (1.8-2.4); POTASSIUM 3.3 mmol/L (3.5-5.1); TOTAL BILIRUBIN 0.8 mg/dL (<0.1-1.0); TOTAL PROTEIN 4.8 g/dL (6.4-8.2)
--- NOTE | 2019-12-23 06:10 | NUR ---
ASSUMED PATIENT CARE AT 1900. ASSESSMENTS COMPLETED CHARTED. CARDIAC MONITORING IN PLACE FOR PATIENT SAFETY. PATIENT REMAINS CONFUSED. FALL PRECAUTIONS IN PLACE FOR PATIENT SAFETY. BED LOCKED AND IN LOWEST POSITION. CLWR.
--- NOTE | 2019-12-23 10:51 | 2DMMODE ---
[place] [address] 2 D/M-MODE ECHOCARDIOGRAM Name: ELINASUNDAR Room: [address] IN .R.#: [id number] Admission: 12/18/19 Attend Phys: Obdulia Castaneda Discharge: Date of : 62 Date of Service: 12/23/19 1051 Report #: [id number] THIS REPORT FOR: cc: FAM - No family physician/PCP SIXTO - No family physician/PCP Twan Hernandez MD [facility] ~ APPROVED REPORT Study performed: 12/23/2019 10:01:28 EXAM: Comprehensive 2D, Doppler, and color-flow Echocardiogram Patient Location: In-Patient Room #: 006 Status: routine BSA: 1.75 HR: 84 bpm BP: 87/64 mmHg Rhythm: NSR Other Information Study Quality: Good Indications Dyspnea 2D Dimensions IVSd: 11.17 (7-11mm) LVOT Diam: 21.39 (18-24mm) LVDd: 45.88 mm PWd: 11.99 (7-11mm) Ascending Ao: 30.87 (22-36mm) LVDs: 37.21 (25-40mm) Aortic Root: 30.41 mm Volumes Left Atrial Volume (Systole) LA ESV Index: 16.40 mL/m2 Aortic Valve AoV Peak Donell.: 0.94 m/s AO Peak Gr.: 3.50 mmHg LVOT Max P.62 mmHg AO Mean Gr.: 1.72 mmHg LVOT Mean P.15 mmHg LVOT Max V: 0.81 m/s AO V2 VTI: 13.30 cm LVOT Mean V: 0.49 m/s DENIS (VTI): 3.42 cm2 LVOT V1 VTI: 12.67 [place] [address] 2 D/M-MODE ECHOCARDIOGRAM Name: SUNDAR ANTOINE Room: [address] IN .R.#: [id number] Admission: 12/18/19 Attend Phys: Obdulia Castaneda Discharge: Date of : 62 Date of Service: 12/23/19 1051 Report #: [id number] Mitral Valve E/A Ratio: 1.21 MV Decel. Time: 211.34 ms MV E Max Donell.: 0.50 m/s MV PHT: 61.29 ms MVA (PHT): 3.59 cm2 TDI E/Lateral E': 6.25 E/Medial E': 5.00 Medial E' Donell.: 0.10 m/s Lateral E' Donell.: 0.08 m/s Tricuspid Valve RAP Estimate: 5.00 mmHg TR Peak Gr.: 28.66 mmHg RVSP: 33.00 mmHg PA Pressure: 33.00 mmHg Left Ventricle The left ventricle is normal size. There is moderate diffuse hypokinesis of left ventricular wall motion. There is normal left ventricular wall thickness. Left ventricular systolic function is moderately decreased. LVEF is 35-40%. This study is not technically sufficient to allow evaluation of the LV diastolic function. Right Ventricle The right ventricle is normal size. The right ventricular systolic function is normal. Atria The left atrium size is normal. The right atrium size is normal. Aortic Valve The aortic valve is normal in structure. No aortic regurgitation is present. There is no aortic valvular stenosis. Mitral Valve The mitral valve is normal in structure. Trace to mild mitral regurgitation. No evidence of mitral valve stenosis. Tricuspid Valve The tricuspid valve is normal in structure. Trace tricuspid regurgitation. Mild pulmonary hypertension. Pulmonic Valve The pulmonary valve is normal in [place] [address] 2 D/M-MODE ECHOCARDIOGRAM Name: SUNDAR ANTOINE Room: [address]#: [id number] Admission: 12/18/19 Attend Phys: Obdulia Castaneda Discharge: Date of : 62 Date of Service: 12/23/19 1051 Report #: [id number] regurgitation. Great Vessels The aortic root is normal in size. IVC is normal in size and collapses >50% with inspiration. Pericardium There is no pericardial effusion. <Conclusion> There is normal left ventricular wall thickness. Left ventricular systolic function is moderately decreased. LVEF is 35-40%. The left atrium size is normal. The aortic valve is normal in structure. The mitral valve is normal in structure. Trace to mild mitral regurgitation. The tricuspid valve is normal in structure. Trace tricuspid regurgitation. Mild pulmonary hypertension. IVC is normal in size and collapses >50% with inspiration. There is no pericardial effusion. There is moderate diffuse hypokinesis of left ventricular wall motion. The left ventricle is normal size. <ELECTRONICALLY SIGNED> By: Twan Hernandez MD, FACC 12/23/19 105 50 50 Twan Hernandez MD, FACC /INF
[2019-12-23 12:44] LABS: HEMATOCRIT 27.9 % (42.0-52.0); HEMOGLOBIN 9.4 gm/dL (14.0-18.0)
--- NOTE | 2019-12-23 14:36 | NUR ---
ICU rounds: Pt out of it today, sleeping alot. Confused. Continue pressors. Hbg down to 7.8. [facility] to continue to try and assess Pt for [place] ARJUN. Cm spoke with Pt's neighbor, Aleida. Per Aleida, she moved away from Pt in March but continues to check in on him. Aleida states that when she moved in March, Pt was doing great at home. Aleida saw Pt for the first bryan approx 3 months ago and per Aleida, Pt looked "really bad." Aleida reports that Pt is a hoarder and stated that per Pt, he had fallen at home and hurt his leg. Per Aleida, Pt assumed that he had lymphodema. Aleida states that she took Pt to urgent care in [place], twice post that visit. Pt does not have a PCP as far as Aleida knows. Aleida provided Pt with a walker and so did Pt's brother. Per Aleida, she does not believe that Pt and brother have a close relationship. Pt never and has no children. Pt's mother about 2 years ago. 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 Per Aleida, Pt has been living off of his 401K, which reportedly has about $2400 left in it. CM asked Aleida if she would be willing to be Pt's DPOA of HC if Pt is in agreement and Aleida stated that she would do that for him. CM to continue to try and complete DPOA with Pt, once Pt is more A&O. Following Aleida Antony, [address] [address]
--- NOTE | 2019-12-23 18:31 | NUR ---
PT PROGRESSED TOWARD GOALS RESTED THROUGH OUT SHIFT ORIENTATED TO PERSON CONDUSED AT TIMES STATING THINGS THAT DON'T MAKE SENSE ABLE TO TITRATED FROM 6.9 ON LEVO TO 5.9 TOLERATING WELL PT STATES HE IS ANXIOUS ATIVAN GIVEN PER ORDER
[2019-12-24] VITALS (15 sets, daily range): BP systolic 72–105; BP diastolic 33–77
--- NOTE | 2019-12-24 03:24 | NUR ---
ASSUMED PATIENT CARE AT 1900. ASSESSMENTS COMPLETED CHARTED. CARDIAC MONITORING IN PLACE. FALL PRECAUTIONS IN PLACE FOR PATIENT SAFETY. BED LOCKED AND IN LOWEST POSITION. CLWR.
[2019-12-24 05:44] LABS: HEMATOCRIT 27.4 % (42.0-52.0); HEMOGLOBIN 9.4 gm/dL (14.0-18.0); MCH 31.7 pg (26.0-34.0); MCHC 34.1 g/dL (28.0-37.0); MPV 8.6 fl. (7.2-11.1); RBC 2.95 mil/uL (4.50-6.00); RDW-CV 17.9 % (10.5-14.5)
[2019-12-24 06:23] LABS: ALBUMIN 1.4 g/dL (3.4-5.0); CALCIUM 7.3 mg/dL (8.5-10.1); CREATININE 0.6 mg/dL (0.6-1.3); MAGNESIUM 1.6 mg/dL (1.8-2.4); POTASSIUM 3.4 mmol/L (3.5-5.1); TOTAL BILIRUBIN 0.9 mg/dL (<0.1-1.0); TOTAL PROTEIN 4.5 g/dL (6.4-8.2)
--- NOTE | 2019-12-24 16:56 | NUR ---
ICU rounds: Off levo gtt. Pressors soft. Weak, but got up to the chair today. Passed swallow in reg thin diet. CM to attempt to complete DPOA with Pt tomorrow.
--- NOTE | 2019-12-24 18:49 | NUR ---
PT ADVANCED TOWARD GOALS PASSED SWALLOW STUDY ADVANCED TO REG THIN DIET TOLERATING WELL PT GOT UP TP CHAIR ABLE TO PIVOT BUT UNABLE TO WALK DID LEG EXERCISES THIS CREW PERSON GAVE PT FULL BED BATH LEVO GTT TITRATED OFF MAINTAINING GOOD BLOOD PRESSURE
[2019-12-25] VITALS (15 sets, daily range): BP systolic 81–100; BP diastolic 51–71
--- NOTE | 2019-12-25 03:18 | NUR ---
ASSUMED PATIENT CARE AT 1900. ASSESSMENTS COMPLETED CHARTED. CARDIAC MONITORING IN PLACE FOR PATIENT SAFETY. FALL PRECAUTIONS IN PLACE FOR PATIENT SAFETY. BED LOCKED AND IN LOWEST POSITION. CLWR.
[2019-12-25 07:45] LABS: HEMATOCRIT 26.2 % (42.0-52.0); HEMOGLOBIN 8.8 gm/dL (14.0-18.0); MCH 31.5 pg (26.0-34.0); MCHC 33.5 g/dL (28.0-37.0); MCV 93.8 fL (80.0-100.0); MPV 9.4 fl. (7.2-11.1); NUCLEATED RBCS 0 /100WBC; PLATELET COUNT* 143 thou/uL (150-400); RBC 2.79 mil/uL (4.50-6.00); RDW-CV 18.1 % (10.5-14.5); WBC 8.9 thou/uL (4.0-11.0)
[2019-12-25 07:55] LABS: ALBUMIN 1.4 g/dL (3.4-5.0); CREATININE 0.6 mg/dL (0.6-1.3); POTASSIUM 3.7 mmol/L (3.5-5.1); TOTAL BILIRUBIN 0.7 mg/dL (<0.1-1.0); TOTAL PROTEIN 4.1 g/dL (6.4-8.2)
--- NOTE | 2019-12-25 08:06 | NUR ---
8328 ASSUMED CARE OF PATIENT. PLEASE SEE DOCUMENTED ASSESSMENT. DR SAN HERE. PROCALAMINE DISCONTINUED. PT CAN TRANSFER TO TELE
[2019-12-25 08:21] LABS: ABSOLUTE LYMPHOCYTES 0.7 thou/uL (0.8-5.3); ABSOLUTE MONOCYTES 0.4 thou/uL (0.0-1.2); ABSOLUTE NEUTROPHILS 7.7 thou/uL (1.6-8.1); PLATELET ESTIMATE ADEQUATE
--- NOTE | 2019-12-25 11:23 | CON ---
[address] [address] CONSULTATION Name: SUNDAR ANTOINE Room: [address] IN M.R.#: [id number] Admission: 12/18/19 Attend Phys: Jameson Araujo Discharge: Date of : 62 Report #: [id number] THIS REPORT FOR: //name// cc: SIXTO Bartholomew family physician/PCP SIXTO - [place] family physician/PCP ~ THIS REPORT FOR: //name// CC: SIXTO physician/PCP Obdulia Castaneda DATE OF SERVICE: 12/20/2019 HISTORY OF PRESENT ILLNESS: This is a 59-year-old gentleman with past medical history of chronic anemia, who was brought in after he was found unresponsive at home, surrounded by alcohol bottles. The patient was previously seen in October of this year by our service. The patient is currently unresponsive and therefore, most of the history has been obtained from the chart. PAST MEDICAL HISTORY: He has a past medical history significant for hypertension, alcohol abuse and smoking. SOCIAL HISTORY: The patient has a known history of smoking and alcohol abuse from his previous admission. FAMILY HISTORY: Again unable to obtain because of the patient's mental status. PHYSICAL EXAMINATION: GENERAL: The patient is somnolent, nonresponsive. VITAL SIGNS: Temperature 37.2, pulse rate 109, respirations 22, blood pressure 97/74, pulse ox 93%. HEENT: Pupils are equal and round and pinpoint. Mucous membranes are moist. There is no congestion. LUNGS: Clear to auscultation bilaterally. CARDIOVASCULAR: Rate and rhythm regular, S1, S2 present. ABDOMEN: Soft. No significant distention, guarding or rigidity. EXTREMITIES: Warm and well perfused. LABORATORY DATA: Hemoglobin 9.6, hematocrit 28.1, platelet count 165, WBC count 7.4. Sodium 146, potassium 4.3, chloride 110, bicarbonate 29, BUN 46, creatinine 1.6. Abdominal ultrasound; tumefactive sludge within the gallbladder without sonographic evidence of cholecystitis or biliary ductal dilation. On presentation, the patient's hemoglobin was 2.9 and hematocrit was 8.7. Since his hospitalization, he has had no active evidence of overt GI bleeding. ASSESSMENT AND PLAN: Pleasant 59-year-old gentleman with history of alcohol and tobacco abuse, found unresponsive at home. The [place] [address] CONSULTATION Name: SUNDAR ANTOINE Room: [address] IN [facility]#: [id number] Admission: 12/18/19 Attend Phys: Jameson Araujo Discharge: Date of : 62 Report #: [id number] in October of this year. At that time, an EGD was performed. The EGD demonstrated mild gastritis and thickened duodenal folds. Gastric biopsies were negative for H. pylori. Duodenal biopsies were normal. The patient will need a colonoscopy for his severe anemia; however, he is sedated and unresponsive, at this time this can be considered when he becomes more awake. We can consider urgent endoscopic intervention if he starts showing signs of active GI bleeding. Okay to advance diet otherwise. I would place him on Protonix b.i.d. <ELECTRONICALLY SIGNED> By: Jorge Phipps MD 12/25/19 1123 [id number] 1200Jorge Phipps MD /nt
--- NOTE | 2019-12-25 14:08 | NUR ---
WOUND NURSE: PATIENT SEEN FOR FOLLOW UP WOUND ASSESSMENT AND PRIMARY WOUND PRESENTS ON RIGHT POPLITEAL AREA AND MEASURES 4.8 X 9.0 X 0.1 CM AND CONTAINS PARTIAL THICKNESS TISSUE LOSS AND SMALL AMOUNT OF SEROUSANGUINOUS DRAINAGE. CLEANSED WITH SOAP AND WATER, RINSED, THEN PATTED DRY. APPLIED OPTIFOAM AG FOAM DRESSING, WRAPPED WITH KERLEX, THEN SECURED WITH TAPE. SACRAL WOUND WITH WITH PURPLISH RED DISCOLORED SKIN BUT NO WOUND OPENING IDENTIFIED AT THIS TIME. REMOVED AND REAPPLIED THIS DRESSING IT WAS JUST APPLIED TODAY. RIGHT HEEL WOUND WITHOUT OPENING BUT WITH RED NONBLANCHEABLE TISSE MEASURING 2.5 X 2.5 CM. THIS SITE PROTECTED WITH A BORDERED FOAM DRESSING AND HEELS OFF MATTRESS USING PILLOWS. BACK WOUND NO LONGER OBSERVED AT TIME OF THIS ASSESSMENT. PATIENT INSTRUCTED ON IMPORTANCE OF GOOD NUTRITION HIGH IN PROTEIN. PATIENT STATES HE UNDERSTANDS.
--- NOTE | 2019-12-25 14:21 | NUR ---
ICU rounds: Pt more alert. Ate breakfast. Therapies to see. Tele status. Possible need for tele psych consult
--- NOTE | 2019-12-25 17:22 | NUR ---
PATIENT PROGRESSING TOWARDS GOALS. TELE STATUS THIS MORNING. IN MRI NOW AND WILL MOVE TO ROOM 210. REMAINS CONFUSED TO SITUATION AND SOMETIMES INAPPROPRIATE. ATTEMPTED TO GET UP BUT UNABLE TO BEAR WEIGHT. MCCRAY CATHETER REMOVED AT 1700. SEVERAL STOOLS TODAY. VSS.
--- NOTE | 2019-12-25 17:42 | NUR ---
REPORT CALLED TO SHEN PEDRAZA. PT TO GO TO ROOM 210 AFTER MRI
[2019-12-26] VITALS: BP 90/54; BP 94/61
[2019-12-26 04:00] VITALS: BP 98/64
--- NOTE | 2019-12-26 07:07 | NUR ---
Pt alert and oriented to person and place. Meds given as ordered. Pt slept off and on this shift. Pt was incontinent of bladder this shift. Q2 turn. Fall precautions in place. Call light withi reach. Hourly roundings made. Will conntinue to monitor.
[2019-12-26 07:30] VITALS: BP 101/71
[2019-12-26 11:44] VITALS: BP 103/43
[2019-12-26 14:57] VITALS: BP 83/55
--- NOTE | 2019-12-26 18:01 | NUR ---
PT A&OX4 VSS. PT ALERT/AWAKE. INCONTINENT OF BOWEL. URINAL AT BEDSIDE. R IJ TRIPLE LUMEN, PATENT, DRESSING C/D/I. PT REMAINS ON ROOM AIR, 100%. CONTINUED IV ABX. PT REQUESTED BLANKET OR SHEET STATING HE WANTED TO SHORTS FROM THEM "[facility]KE [facility]". REHAB CONSULT. PT RESTS IN BED WITH CALL LIGHT AND PHONE IN REACH. WILL CONTINUE TO MONITOR.
[2019-12-26 20:00] VITALS: BP 90/61
[2019-12-27] VITALS: BP 110/70
[2019-12-27 04:00] VITALS: BP 97/59
--- NOTE | 2019-12-27 07:05 | NUR ---
PATIENT NOT PROGRESSING TOWARDS GOALS: PATIENT REMAINS WITH SIGNIFICANT WEAKNESS AND FATIGUE. PATIENT C/O "LEGS NOT WORKING". PATIENT ENCOURAGED TO PROVIDE RANGE OF MOTION EXERCISES WHILE IN BED.
[2019-12-27 07:54] VITALS: BP 107/68
[2019-12-27 12:40] VITALS: BP 114/72
[2019-12-27 16:22] VITALS: BP 101/66
--- NOTE | 2019-12-27 19:26 | NUR ---
PT AWAKE/ALERT VSS. PT CONFUSED AT TIMES. TRIPLE LUMEN IJ TO RIGHT SIDE PATENT, DRESSING C/D/I. PT ADVOCATE, AMELIA WAS HERE TODAY. SHE WAS UPDATED AND INFORMRD THIS NURSXE THAT SHE WOULD BE MEETING PT LANDLORD TO ATTEMPT TO LOCATE PT IDENTIFICATION AT HIS RESIDENCE. SHE ALSO STATES SHE WILL CONTINUE TO COMMUNICATE WITH CASE MANAGEMENT R/T PLAN OF CARE. INCONTINENT OF BM X2, WELL URINE. PT REQUESTED URINAL WELL. WOUND DRESSINGS CHANGED, PHOTOS TO CHART. PT REPOSITIONED Q2H FOR SKIN INTEGRITY. NO C/O PAIN AT THIS TIME. EDEMA TO SCROTUM AND PENIS OBSERVED, PHYSICIAN NOTIFIED. PT STATES HE IS AWARE HE IS SCHEDULED FOR AN MRI TOMORROW. PT RESTS IN ROOM WITH CALL LIGHT IN REACH. WILL CONTINUE TO MONITOR.
[2019-12-27 20:00] VITALS: BP 118/68
[2019-12-28] VITALS: BP 100/59
[2019-12-28 04:00] VITALS: BP 107/65
--- NOTE | 2019-12-28 07:02 | NUR ---
ASSUMED CARE OF PT AFTER REPORT AT 1930. PT A&OX3. NOT ORIENTED TO TIME. FORGETFUL. VSS. PHYSICAL ASSESSMENT COMPLETED AND CHARTED. PT ON RA. PT TRACING SR/ST/PAC ON TELE. PT COMPLAINED OF BILATERAL LEG PAIN-MED GIVEN PER JUL. PT WITH EPISODE OF INCONTINENT BOWEL. CALL LIGHT WITHIN REACH.
[2019-12-28 08:00] VITALS: BP 124/77
[2019-12-28 12:56] VITALS: BP 123/74
--- NOTE | 2019-12-28 17:51 | NUR ---
Rosario completed ARJUN bay with Pt. Rehab consult pending. ordered OT and ST sherita gutierrez. Anticipate dc tomorrow
[2019-12-28 17:52] VITALS: BP 75/48
--- NOTE | 2019-12-28 18:43 | NUR ---
PT IS ALERT AND ORIENTED X2-3 ANXIOUS AT TIMES FORGETFUL INCONTINENT OF BOWEL AND BLADDER UP IN CHAIR FOR LUNCH AND DINNER WAITING ON SPECIALTY BED D/T WOUNDS ALL OVER BODY DENIES PAIN AT THIS TIME BLE AND SCROTAL EDEMA RIJ CONTINUES CALL LIGHT IN REACH NO OTHER CONCERNS AT THIS TIME
[2019-12-28 20:00] VITALS: BP 105/74
[2019-12-29] VITALS: BP 100/52
[2019-12-29 04:00] VITALS: BP 113/68
--- NOTE | 2019-12-29 04:42 | NUR ---
ASSUMED CARE OF PT AFTER REPORT AT 1930. PT A&OX3. NOT ORIENTED TO TIME. VSS. PHYSICAL ASSESSMENT COMPLETED AND CHARTED. PT ON RA. PT TRACING SR/PAC ON TELE. PT DENIES PAIN. CIWA CHARTED. PT ABLE TO SLEEP WELL ON BED. CALL LIGHT WITHIN REACH.
[2019-12-29 08:20] VITALS: BP 122/82
[2019-12-29] MEDS ORDERED: FLORINEF ACETA0.1 MG PO ×2 (10:11→11:59)
[2019-12-29] MEDS ORDERED: THERA M PLUS T1 EAC2 PO (10:11)
[2019-12-29] MEDS ORDERED: MIDODRINE HCL 55 M1 PO ×2 (10:11→11:59)
--- NOTE | 2019-12-29 11:09 | NUR ---
Pt medically stable to dc to acute rehab today, updated director of rehabilitation and wellness. Awaiting OT eval. CM informed liaison that Pt has limited support post dc. Pt is medicaid pending.
[2019-12-29 11:54] VITALS: BP 122/82
[2019-12-29] MEDS ORDERED: KLOR-CON 1010 MEQ PO (11:56)
[2019-12-29] MEDS ORDERED: PROTONIX40 M2 PO (11:57)
[2019-12-29] MEDS ORDERED: FOLIC ACID1 MG PO (11:57)
[2019-12-29] MEDS ORDERED: IRON325 M1 PO (11:58)
[2019-12-29 15:56] VITALS: BP 128/77
--- NOTE | 2019-12-29 18:00 | NUR ---
PATIENT IS ALERT AND ORIENTED X 3. HE HAS A DIFFERENT PERSONALITY BUT IS VERY COOPERATIVE WITH ALL CARE. HE WILL BE TRANSFERRING UP TO THE 3RD FLOOR AFTER SHIFT CHANGE FOR REHAB. HE IS NOT ABLE TO USE HIS LEGS AT THIS TIME THEY ARE VERY WEAK. WE USED A LIFT TO GET HIM UP TO THE CHAIR TODAY. HE EATS VERY WELL AND FEEDS HIMSELF. HE DOES USE THE CALL LIGHT TO MAKE HIS NEEDS KNOWN. FALL PRECAUTIONS HAVE BEEN MAINTAINED AND THE BED AND CHAIR ALARMS HAVE BEEN USED ALL SHIFT. HE HAS MULTIPLE PRESSURE ULCERS BUT DRESSINGS WERE NOT DUE TO BE CHANGED TODAY. I ATTEMPTED TO CALL REPORT TO REHAB BUT THEY DID NOT WANT TO TAKE REPORT. I TOOK OUT HIS TRIPLE LUMEN IJ ORDERED AND HE TOLERATED WELL. NO DISTRESS NOTED TODAY. SR UP X 3 CALL LIGHT IN EASY REACH. HE DID HAVE A LARGE BM TODAY ON THE BEDPAN.
--- NOTE | 2019-12-30 20:00 | CON ---
[address] [address] CONSULTATION Name: SUNDAR ANTOINE Room: [address] IN M.R.#: [id number] Admission: 12/18/19 Attend Phys: Jameson Araujo Discharge: 12/29/19 Date of : 62 Report #: [id number] THIS REPORT FOR: //name// cc: SIXTO Bartholomew family physician/PCP SIXTO - [place] family physician/PCP ~ THIS REPORT FOR: //name// CC: SIXTO physician/PCP Obdulia Castaneda DATE OF SERVICE: 12/21/2019 HISTORY OF PRESENT ILLNESS: This 59-year-old male patient was evaluated for altered mental status. This patient is not able to provide any reliable history. I talked to the nurses looking after this patient and I reviewed the patient's records in the computer. As I understand from the records, this patient was found unresponsive at home. His breathing was only 6-8 respirations and his oxygen saturation was about 60%. The patient apparently is a heavy alcohol drinker. Apparently, the temperature inside the house was also very hot. The patient also appeared to be a smoker. As I understand, he has developed other problems including GI bleed. REVIEW OF SYSTEMS: From the record, he has a history of alcohol abuse, unresponsiveness now as well as a GI bleed. Apparently, he also has a history of hypertension. A 14-point review of systems was attempted, but that is all I can get. PAST MEDICAL HISTORY: Positive for heavy alcohol use. FAMILY HISTORY: Unavailable. SOCIAL HISTORY: From the records apparently, he smokes as well as drinks alcohol. PHYSICAL EXAMINATION: Indicate the patient is not responsive. He did not do anything except squeeze his eyes shut when I tried to examine his pupil. He got some Ativan. Nurses tell me that he moves all 4 extremities. I tried to make him move when he did not do it and I tried to do the cranial nerve examination, which was unsuccessful. His fundus could not be seen. He does not appear to be in respiratory difficulty. Blood pressure is 92/68, respirations 17, pulse is 107, and temperature is 99.7. He was febrile at one time. Cardiac examinations appear noncontributory. He did have a CT scan of the head a few days ago and that shows what looks [place] a [place] [address] CONSULTATION Name: SUNDAR ANTOINE Room: [address] IN [facility].#: [id number] Admission: 12/18/19 Attend Phys: Jameson Araujo Discharge: 12/29/19 Date of : 62 Report #: [id number] IMPRESSION: This patient appeared to have pretty significant encephalopathy. Because of cerebral atrophy, he may have some underlying dementia, but difficult to tell. He has a significant alcohol intake that may be contributing to his problem. His oxygen saturation was low when he was seen that may contribute to his problem. Presently, his sodium is high that may contribute to his problem. If he has any systemic infection, that may also contribute to his problem. RECOMMENDATIONS: Limited thing can be done on this patient neurologically. I will try to see if we can get an EEG done. Main thing is to continue systemic management including his hepatic dysfunction. His TSH and vitamin B12 are already checked and that was unremarkable, main management is going to be the management of systemic problems. Thank you very much for this referral. <ELECTRONICALLY SIGNED> By: Reddy Street MD 12/30/191999 [address] MD /nt
--- NOTE | 2019-12-30 20:00 | EEG ---
[address] [address] EEG STUDY REPORT Name: SUNDAR ANTOINE Room: [address] IN M.R.#: [id number] Admission: 12/18/19 Attend Phys: Jameson Araujo Discharge: 12/29/19 Date of : 62 Report #: [id number] THIS REPORT FOR: //name// CC: SIXTO physician/PCP Obdulia Castaneda DATE OF SERVICE: 12/22/2019 This patient is being evaluated for encephalopathy. EEG was done by placing the electrode by standard 10-20 system of electrode placement. Both referential and sequential montages were done used for recording. Background activity in this patient's EEG is about 6-7 Hz and 30 microvolt. Photic stimulation is unremarkable. The patient became drowsy and that is associated with bilateral slowing. No active epileptiform activity was noted. IMPRESSION: This patient's EEG is only moderately abnormal with some intermixed slowing. No active epileptiform activity was noticed. <ELECTRONICALLY SIGNED> By: Reddy Street MD 12/30/191999 [address] MD /nt
== END 2019-12-29 20:09 | DRG 871 ==
LOC: M.ERS 11:07 → M.TBA-ER 13:09 → M.ICU 14:22 → M.2W 12-25 18:13
PROVIDERS: Emergency Medicine Emergency Medical Services; Internal Medicine; ADMIT Internal Medicine; ATTEND Internal Medicine
PROC: 5A1935Z Respiratory Ventilation, Less than 24 Consecutive Hours (ICD-10-PCS; principal; 2019-12-18)
PROC: 0BH17EZ Insertion of Endotracheal Airway into Trachea, Via Natural or Artificial Opening (ICD-10-PCS; principal; 2019-12-18)
PROC: 30233N1 Transfusion of Nonautologous Red Blood Cells into Peripheral Vein, Percutaneous Approach (ICD-10-PCS; principal; 2019-12-18)
PROC: 02H633Z Insertion of Infusion Device into Right Atrium, Percutaneous Approach (ICD-10-PCS; 2019-12-18)
DX: A41.9 Sepsis, unspecified organism (principal); G93.41 Metabolic encephalopathy; E43 Unspecified severe protein-calorie malnutrition; N17.0 Acute kidney failure with tubular necrosis; R57.8 Other shock; E27.40 Unspecified adrenocortical insufficiency; N39.0 Urinary tract infection, site not specified; D62 Acute posthemorrhagic anemia; K92.2 Gastrointestinal hemorrhage, unspecified; E87.0 Hyperosmolality and hypernatremia; F10.239 Alcohol dependence with withdrawal, unspecified; M47.896 Other spondylosis, lumbar region; I25.9 Chronic ischemic heart disease, unspecified; I95.1 Orthostatic hypotension; K76.0 Fatty (change of) liver, not elsewhere classified; F44.4 Conversion disorder with motor symptom or deficit; K70.10 Alcoholic hepatitis without ascites; I10 Essential (primary) hypertension; R31.9 Hematuria, unspecified; Y90.9 Presence of alcohol in blood, level not specified; F17.210 Nicotine dependence, cigarettes, uncomplicated; Z20.828 Contact with and (suspected) exposure to other viral communicable diseases; Z79.899 Other long term (current) drug therapy; Z68.25 Body mass index [BMI] 25.0-25.9, adult

== ENCOUNTER 2019-12-29 19:04 | Inpatient (IN) | payer MEDICAID ==
[~2019-12-29] VITALS: Ht 180.3 cm; Wt 75.0 kg
[~2019-12-29 19:04] MED LIST changes: +FLORINEF ACETA0.1 MG PO; +IRON325 M1 PO; +KLOR-CON 1010 MEQ PO; +MIDODRINE HCL 55 M1 PO; +PROTONIX40 M2 PO; +THERA M PLUS T1 EAC2 PO
[2019-12-29 20:05] VITALS: BP 118/78
[2019-12-30 04:04] LABS: HEMATOCRIT 24.1 % (42.0-52.0); HEMOGLOBIN 8.2 gm/dL (14.0-18.0); MCH 31.6 pg (26.0-34.0); MCHC 33.9 g/dL (28.0-37.0); MCV 93.3 fL (80.0-100.0); RBC 2.59 mil/uL (4.50-6.00); RDW-CV 17.2 % (10.5-14.5)
[2019-12-30 04:40] LABS: CREATININE 0.5 mg/dL (0.6-1.3)
[2019-12-30 04:45] LABS: POTASSIUM 2.2 mmol/L (3.5-5.1)
[2019-12-30 07:00] VITALS: BP 126/71
[2019-12-30 09:00] LABS: % SATURATION 26 % (20-39); IRON 21 ug/dL (50-175)
[2019-12-30 20:00] VITALS: BP 120/72
[2019-12-31 04:35] LABS: HEMATOCRIT 24.7 % (42.0-52.0); HEMOGLOBIN 8.3 gm/dL (14.0-18.0); MCH 31.6 pg (26.0-34.0); MCHC 33.7 g/dL (28.0-37.0); MCV 93.7 fL (80.0-100.0); MPV 8.4 fl. (7.2-11.1); RBC 2.64 mil/uL (4.50-6.00); RDW-CV 17.8 % (10.5-14.5); WBC 5.6 thou/uL (4.0-11.0)
[2019-12-31 04:52] LABS: CALCIUM 7.4 mg/dL (8.5-10.1); CREATININE 0.6 mg/dL (0.6-1.3); MAGNESIUM 1.2 mg/dL (1.8-2.4); POTASSIUM 3.9 mmol/L (3.5-5.1)
[2019-12-31 08:00] VITALS: BP 130/85
[2019-12-31 19:50] VITALS: BP 129/81
[2020-01-01 07:59] VITALS: BP 138/88
[2020-01-01 19:45] VITALS: BP 116/66
[2020-01-02 05:10] LABS: CALCIUM 7.5 mg/dL (8.5-10.1); CREATININE 0.6 mg/dL (0.6-1.3); MAGNESIUM 1.4 mg/dL (1.8-2.4); POTASSIUM 3.6 mmol/L (3.5-5.1)
[2020-01-02 08:43] VITALS: BP 115/82
[2020-01-02 19:50] VITALS: BP 136/85
[2020-01-03 09:02] VITALS: BP 135/88
[2020-01-03 19:00] VITALS: BP 110/75
[2020-01-04 04:02] LABS: HEMATOCRIT 24.4 % (42.0-52.0); HEMOGLOBIN 8.2 gm/dL (14.0-18.0); MCH 31.3 pg (26.0-34.0); MCHC 33.6 g/dL (28.0-37.0); MCV 93.4 fL (80.0-100.0); MPV 7.6 fl. (7.2-11.1); RBC 2.62 mil/uL (4.50-6.00); RDW-CV 17.1 % (10.5-14.5); WBC 5.4 thou/uL (4.0-11.0)
[2020-01-04 04:15] LABS: ALBUMIN 1.5 g/dL (3.4-5.0); CALCIUM 7.3 mg/dL (8.5-10.1); CREATININE 0.6 mg/dL (0.6-1.3); MAGNESIUM 1.5 mg/dL (1.8-2.4); POTASSIUM 3.1 mmol/L (3.5-5.1); TOTAL BILIRUBIN 0.3 mg/dL (<0.1-1.0); TOTAL PROTEIN 4.9 g/dL (6.4-8.2)
[2020-01-04 07:00] VITALS: BP 144/87
[2020-01-04 20:00] VITALS: BP 124/81
[2020-01-05 08:42] VITALS: BP 145/87
[2020-01-05 11:06] LABS: ABSOLUTE EOSINOPHILS 0.2 thou/uL (0.0-0.7); ABSOLUTE MONOCYTES 0.6 thou/uL (0.0-1.2); ABSOLUTE NEUTROPHILS 3.5 thou/uL (1.6-8.1); BASOPHILS 0.8 %; EOSINOPHILS 3.3 %; HEMATOCRIT 30.9 % (42.0-52.0); HEMOGLOBIN 10.1 gm/dL (14.0-18.0); MCH 31.3 pg (26.0-34.0); MCHC 32.7 g/dL (28.0-37.0); MCV 95.6 fL (80.0-100.0); MONOCYTES 11.5 %; MPV 7.8 fl. (7.2-11.1); NUCLEATED RBCS 0 /100WBC; POLYS 65.4 %; RBC 3.23 mil/uL (4.50-6.00); RDW-CV 17.7 % (10.5-14.5); WBC 5.3 thou/uL (4.0-11.0)
[2020-01-05 11:08] LABS: PLATELET COUNT* 417 thou/uL (150-400)
[2020-01-05 11:23] LABS: ALBUMIN 1.9 g/dL (3.4-5.0); CALCIUM 8.2 mg/dL (8.5-10.1); CREATININE 0.6 mg/dL (0.6-1.3); MAGNESIUM 1.6 mg/dL (1.8-2.4); POTASSIUM 3.7 mmol/L (3.5-5.1); TOTAL BILIRUBIN 0.4 mg/dL (<0.1-1.0); TOTAL PROTEIN 5.4 g/dL (6.4-8.2)
[2020-01-05 19:00] VITALS: BP 117/72
[2020-01-06 08:45] VITALS: BP 141/81
[2020-01-06 08:47] LABS: CALCIUM 8.1 mg/dL (8.5-10.1); CREATININE 0.6 mg/dL (0.6-1.3); POTASSIUM 3.4 mmol/L (3.5-5.1)
[2020-01-06 19:49] VITALS: BP 134/82
[2020-01-07 08:00] VITALS: BP 142/84
[2020-01-07 08:26] LABS: ABSOLUTE BASOPHILS 0.1 thou/uL (0.0-0.2); ABSOLUTE EOSINOPHILS 0.1 thou/uL (0.0-0.7); ABSOLUTE MONOCYTES 0.6 thou/uL (0.0-1.2); ABSOLUTE NEUTROPHILS 4.3 thou/uL (1.6-8.1); BASOPHILS 1.1 %; EOSINOPHILS 2.3 %; HEMATOCRIT 27.9 % (42.0-52.0); HEMOGLOBIN 9.3 gm/dL (14.0-18.0); LYMPHOCYTES 16.3 %; MCH 31.3 pg (26.0-34.0); MCHC 33.2 g/dL (28.0-37.0); MCV 94.3 fL (80.0-100.0); MONOCYTES 9.4 %; NUCLEATED RBCS 0 /100WBC; PLATELET COUNT* 440 thou/uL (150-400); POLYS 70.9 %; RBC 2.96 mil/uL (4.50-6.00); RDW-CV 17.1 % (10.5-14.5)
[2020-01-07 08:38] LABS: CALCIUM 8.3 mg/dL (8.5-10.1); CREATININE 0.6 mg/dL (0.6-1.3); MAGNESIUM 1.7 mg/dL (1.8-2.4); TOTAL BILIRUBIN 0.4 mg/dL (<0.1-1.0); TOTAL PROTEIN 6.1 g/dL (6.4-8.2)
[2020-01-07 19:34] VITALS: BP 124/73
[2020-01-08 07:00] VITALS: BP 142/97
[2020-01-08 20:04] VITALS: BP 124/69
[2020-01-09 05:03] LABS: CALCIUM 7.7 mg/dL (8.5-10.1); CREATININE 0.7 mg/dL (0.6-1.3); MAGNESIUM 1.6 mg/dL (1.8-2.4); POTASSIUM 3.5 mmol/L (3.5-5.1)
[2020-01-09 07:00] VITALS: BP 154/89
[2020-01-09 20:00] VITALS: BP 144/84
[2020-01-10 07:30] VITALS: BP 156/87
[2020-01-10 08:00] VITALS: BP 156/87
[2020-01-10 19:00] VITALS: BP 129/70
[2020-01-11 05:01] LABS: CREATININE 0.6 mg/dL (0.6-1.3); MAGNESIUM 1.7 mg/dL (1.8-2.4); POTASSIUM 3.4 mmol/L (3.5-5.1)
[2020-01-11 08:55] VITALS: BP 156/93
[2020-01-11 20:00] VITALS: BP 132/74
[2020-01-12 08:00] VITALS: BP 141/85
[2020-01-12 19:00] VITALS: BP 138/75
[2020-01-13 07:30] VITALS: BP 166/80
[2020-01-13 08:32] VITALS: BP 166/80
[2020-01-13 20:00] VITALS: BP 122/73
[2020-01-14 08:00] VITALS: BP 146/91
[2020-01-14 20:04] VITALS: BP 143/83
[2020-01-15 08:32] VITALS: BP 159/89
[2020-01-15 20:00] VITALS: BP 127/68
[2020-01-16 08:00] VITALS: BP 149/92
[2020-01-16 09:37] VITALS: BP 149/92
[2020-01-16 19:55] VITALS: BP 124/73
[2020-01-17 09:47] VITALS: BP 161/90
[2020-01-17 19:54] VITALS: BP 138/78
[2020-01-18 04:36] LABS: ABSOLUTE BASOPHILS 0.1 thou/uL (0.0-0.2); ABSOLUTE EOSINOPHILS 0.2 thou/uL (0.0-0.7); ABSOLUTE LYMPHOCYTES 1.1 thou/uL (0.8-5.3); ABSOLUTE NEUTROPHILS 4.4 thou/uL (1.6-8.1); BASOPHILS 0.9 %; EOSINOPHILS 2.8 %; HEMATOCRIT 28.7 % (42.0-52.0); HEMOGLOBIN 9.6 gm/dL (14.0-18.0); MCH 31.1 pg (26.0-34.0); MCHC 33.5 g/dL (28.0-37.0); MONOCYTES 14.2 %; NUCLEATED RBCS 0 /100WBC; PLATELET COUNT* 436 thou/uL (150-400); POLYS 66.1 %; RBC 3.08 mil/uL (4.50-6.00); RDW-CV 17.1 % (10.5-14.5); WBC 6.7 thou/uL (4.0-11.0)
[2020-01-18 05:11] LABS: CALCIUM 8.9 mg/dL (8.5-10.1); CREATININE 0.7 mg/dL (0.6-1.3)
[2020-01-18 07:00] VITALS: BP 141/85
[2020-01-18 19:30] VITALS: BP 131/70
[2020-01-19 09:00] VITALS: BP 120/69
[2020-01-19 20:00] VITALS: BP 129/75
[2020-01-20 08:00] VITALS: BP 154/89
[2020-01-20 19:30] VITALS: BP 128/75
[2020-01-21 08:30] VITALS: BP 132/76
[2020-01-21 20:00] VITALS: BP 140/83
[2020-01-22 08:00] VITALS: BP 141/80
[2020-01-22 19:45] VITALS: BP 116/69
[2020-01-23 07:45] VITALS: BP 137/84
[2020-01-23 20:22] VITALS: BP 133/76
[2020-01-24 07:45] VITALS: BP 142/79
[2020-01-24 19:00] VITALS: BP 135/85
[2020-01-25 03:25] LABS: HEMATOCRIT 27.9 % (42.0-52.0); HEMOGLOBIN 9.4 gm/dL (14.0-18.0); MCH 30.9 pg (26.0-34.0); MCHC 33.6 g/dL (28.0-37.0); MCV 91.8 fL (80.0-100.0); MPV 6.4 fl. (7.2-11.1); RBC 3.03 mil/uL (4.50-6.00); RDW-CV 16.2 % (10.5-14.5); WBC 6.6 thou/uL (4.0-11.0)
[2020-01-25 03:50] LABS: CALCIUM 9.1 mg/dL (8.5-10.1); CREATININE 0.8 mg/dL (0.6-1.3); POTASSIUM 3.9 mmol/L (3.5-5.1)
[2020-01-25 07:55] VITALS: BP 156/93
[2020-01-25 19:00] VITALS: BP 130/79
[2020-01-26 07:56] VITALS: BP 144/99
[2020-01-26 19:00] VITALS: BP 137/80
[2020-01-27 08:11] VITALS: BP 145/68
[2020-01-27 19:30] VITALS: BP 143/70
[2020-01-28 08:00] VITALS: BP 137/83
[2020-01-28 13:00] LABS: HEMATOCRIT 29.4 % (42.0-52.0); MCH 31.1 pg (26.0-34.0); MCHC 34.1 g/dL (28.0-37.0); MCV 91.4 fL (80.0-100.0); MPV 6.3 fl. (7.2-11.1); RBC 3.21 mil/uL (4.50-6.00); RDW-CV 16.4 % (10.5-14.5); WBC 6.7 thou/uL (4.0-11.0)
[2020-01-28 13:15] LABS: ALBUMIN 3.4 g/dL (3.4-5.0); CALCIUM 8.8 mg/dL (8.5-10.1); CREATININE 0.8 mg/dL (0.6-1.3); POTASSIUM 4.3 mmol/L (3.5-5.1); TOTAL BILIRUBIN 0.4 mg/dL (<0.1-1.0); TOTAL PROTEIN 7.3 g/dL (6.4-8.2)
[2020-01-28 19:49] VITALS: BP 104/64
[2020-01-29 07:30] VITALS: BP 134/78
[2020-01-29 20:04] VITALS: BP 138/80
[2020-01-30 07:30] VITALS: BP 130/92
[2020-01-30 07:49] VITALS: BP 130/92
[2020-01-30 20:04] VITALS: BP 123/73
[2020-01-31 07:30] VITALS: BP 133/77
[2020-01-31 19:22] VITALS: BP 125/81
[2020-02-01 03:53] LABS: ABSOLUTE BASOPHILS 0.1 thou/uL (0.0-0.2); ABSOLUTE EOSINOPHILS 0.3 thou/uL (0.0-0.7); ABSOLUTE LYMPHOCYTES 1.4 thou/uL (0.8-5.3); ABSOLUTE MONOCYTES 0.9 thou/uL (0.0-1.2); ABSOLUTE NEUTROPHILS 4.1 thou/uL (1.6-8.1); BASOPHILS 1.2 %; EOSINOPHILS 4.6 %; HEMATOCRIT 27.9 % (42.0-52.0); HEMOGLOBIN 9.5 gm/dL (14.0-18.0); LYMPHOCYTES 19.9 %; MCH 31.1 pg (26.0-34.0); MCV 91.4 fL (80.0-100.0); MONOCYTES 13.9 %; NUCLEATED RBCS 0 /100WBC; PLATELET COUNT* 299 thou/uL (150-400); POLYS 60.4 %; RBC 3.05 mil/uL (4.50-6.00); WBC 6.8 thou/uL (4.0-11.0)
[2020-02-01 07:45] VITALS: BP 157/92
[2020-02-01 12:40] LABS: ALBUMIN 3.2 g/dL (3.4-5.0); CALCIUM 9.1 mg/dL (8.5-10.1); CREATININE 0.7 mg/dL (0.6-1.3); POTASSIUM 3.9 mmol/L (3.5-5.1); TOTAL BILIRUBIN 0.3 mg/dL (<0.1-1.0); TOTAL PROTEIN 6.5 g/dL (6.4-8.2)
[2020-02-01 12:52] LABS: % SATURATION 17 % (20-39); IRON 41 ug/dL (50-175)
[2020-02-01 20:00] VITALS: BP 108/65
[2020-02-02 08:00] VITALS: BP 147/83
[2020-02-02 20:00] VITALS: BP 116/62
[2020-02-03 08:00] VITALS: BP 132/78
[2020-02-03 20:00] VITALS: BP 140/79
[2020-02-04 08:00] VITALS: BP 148/75
[2020-02-04 19:59] VITALS: BP 136/75
[2020-02-05 08:26] VITALS: BP 125/70
[2020-02-05 20:00] VITALS: BP 127/72
[2020-02-06 07:54] VITALS: BP 127/67
[2020-02-06 20:00] VITALS: BP 112/71
[2020-02-07 07:54] VITALS: BP 139/70
[2020-02-07 20:00] VITALS: BP 137/71
[2020-02-08 04:34] LABS: HEMOGLOBIN 9.4 gm/dL (14.0-18.0); MCH 30.5 pg (26.0-34.0); MCHC 33.6 g/dL (28.0-37.0); RBC 3.08 mil/uL (4.50-6.00); RDW-CV 15.6 % (10.5-14.5); WBC 6.1 thou/uL (4.0-11.0)
[2020-02-08 04:40] LABS: CREATININE 0.9 mg/dL (0.6-1.3); MAGNESIUM 1.9 mg/dL (1.8-2.4); POTASSIUM 3.9 mmol/L (3.5-5.1)
[2020-02-08 07:00] VITALS: BP 119/64
[2020-02-08 13:20] LABS: ABSOLUTE BASOPHILS 0.1 thou/uL (0.0-0.2); ABSOLUTE EOSINOPHILS 0.3 thou/uL (0.0-0.7); ABSOLUTE LYMPHOCYTES 1.1 thou/uL (0.8-5.3); ABSOLUTE MONOCYTES 0.8 thou/uL (0.0-1.2); ABSOLUTE NEUTROPHILS 4.9 thou/uL (1.6-8.1); BASOPHILS 0.9 %; EOSINOPHILS 4.1 %; HEMATOCRIT 30.8 % (42.0-52.0); HEMOGLOBIN 10.4 gm/dL (14.0-18.0); LYMPHOCYTES 15.5 %; MCH 30.8 pg (26.0-34.0); MCHC 33.9 g/dL (28.0-37.0); MCV 90.8 fL (80.0-100.0); MONOCYTES 10.7 %; MPV 6.6 fl. (7.2-11.1); NUCLEATED RBCS 0 /100WBC; PLATELET COUNT* 288 thou/uL (150-400); POLYS 68.8 %; RBC 3.39 mil/uL (4.50-6.00); RDW-CV 16.2 % (10.5-14.5); WBC 7.2 thou/uL (4.0-11.0)
[2020-02-08 13:32] LABS: ALBUMIN 3.7 g/dL (3.4-5.0); CREATININE 0.8 mg/dL (0.6-1.3); POTASSIUM 4.4 mmol/L (3.5-5.1); TOTAL BILIRUBIN 0.3 mg/dL (<0.1-1.0); TOTAL PROTEIN 7.3 g/dL (6.4-8.2)
[2020-02-08 13:42] LABS: CALCIUM 9.1 mg/dL (8.5-10.1)
[2020-02-08 19:30] VITALS: BP 120/71
[2020-02-09 08:00] VITALS: BP 155/81
[2020-02-09 20:00] VITALS: BP 133/73
[2020-02-10 07:00] VITALS: BP 147/80
[2020-02-10 20:00] VITALS: BP 155/78
[2020-02-11 07:56] VITALS: BP 159/82
[2020-02-11 20:00] VITALS: BP 118/71
[2020-02-12 08:13] VITALS: BP 145/80
[2020-02-12 20:00] VITALS: BP 121/59
[2020-02-13 08:00] VITALS: BP 136/78
[2020-02-13 20:00] VITALS: BP 127/86
[2020-02-14 08:31] VITALS: BP 115/77
[2020-02-14 20:00] VITALS: BP 117/64
[2020-02-15 08:53] VITALS: BP 140/79
[2020-02-15 20:00] VITALS: BP 132/68
[2020-02-16 08:00] VITALS: BP 152/83
[2020-02-16 19:00] VITALS: BP 134/75
[2020-02-17 09:35] VITALS: BP 119/62
[2020-02-17 19:54] VITALS: BP 123/69
[2020-02-18 02:06] LABS: IgA 317 mg/dL (90-386); IgG 943 mg/dL (603-1613); IgM 100 mg/dL (20-172)
[2020-02-18 08:00] VITALS: BP 114/71
[2020-02-18 13:08] LABS: ANA INTERPRETATION Negative (Negative)
[2020-02-18 19:59] VITALS: BP 125/70
[2020-02-19 08:00] VITALS: BP 110/70
[2020-02-19 20:04] VITALS: BP 152/87
[2020-02-20 07:00] VITALS: BP 126/74
[2020-02-20 21:00] VITALS: BP 124/65
[2020-02-21 08:00] VITALS: BP 101/63
[2020-02-21 20:00] VITALS: BP 124/92
[2020-02-22 08:00] VITALS: BP 111/69
[2020-02-22 19:00] VITALS: BP 141/78
[2020-02-23 03:52] LABS: HEMATOCRIT 28.4 % (42.0-52.0); HEMOGLOBIN 9.6 gm/dL (14.0-18.0); MCH 30.4 pg (26.0-34.0); MCHC 33.8 g/dL (28.0-37.0); MCV 89.9 fL (80.0-100.0); MPV 6.7 fl. (7.2-11.1); RBC 3.16 mil/uL (4.50-6.00); WBC 6.3 thou/uL (4.0-11.0)
[2020-02-23 04:08] LABS: ALBUMIN 3.5 g/dL (3.4-5.0); CALCIUM 9.4 mg/dL (8.5-10.1); CREATININE 0.9 mg/dL (0.6-1.3); POTASSIUM 4.2 mmol/L (3.5-5.1); TOTAL BILIRUBIN 0.3 mg/dL (<0.1-1.0); TOTAL PROTEIN 6.4 g/dL (6.4-8.2)
[2020-02-23 08:00] VITALS: BP 157/87
[2020-02-23 19:00] VITALS: BP 131/67
[2020-02-24 07:30] VITALS: BP 130/61
[2020-02-24 19:00] VITALS: BP 135/66
[2020-02-25 07:52] VITALS: BP 134/61
[2020-02-25 19:44] VITALS: BP 126/65
[2020-02-26 08:00] VITALS: BP 134/70
[2020-02-26 19:55] VITALS: BP 131/62
[2020-02-27 08:00] VITALS: BP 126/73
[2020-02-27 19:50] VITALS: BP 147/74
[2020-02-28 08:00] VITALS: BP 123/79
[2020-02-28 19:45] VITALS: BP 137/76
[2020-02-29 07:00] VITALS: BP 148/78
[2020-02-29 19:00] VITALS: BP 136/66
[2020-03-01 05:29] LABS: HEMATOCRIT 29.7 % (42.0-52.0); HEMOGLOBIN 10.2 gm/dL (14.0-18.0); MCH 30.2 pg (26.0-34.0); MCHC 34.2 g/dL (28.0-37.0); MCV 88.3 fL (80.0-100.0); MPV 6.8 fl. (7.2-11.1); RBC 3.37 mil/uL (4.50-6.00); RDW-CV 14.7 % (10.5-14.5); WBC 6.2 thou/uL (4.0-11.0)
[2020-03-01 05:49] LABS: ALBUMIN 3.7 g/dL (3.4-5.0); CALCIUM 9.4 mg/dL (8.5-10.1); CREATININE 0.7 mg/dL (0.6-1.3); MAGNESIUM 1.8 mg/dL (1.8-2.4); POTASSIUM 3.9 mmol/L (3.5-5.1); TOTAL BILIRUBIN 0.3 mg/dL (<0.1-1.0); TOTAL PROTEIN 6.7 g/dL (6.4-8.2)
[2020-03-01 09:45] VITALS: BP 147/98
[2020-03-01 19:00] VITALS: BP 133/67
[2020-03-02 07:00] VITALS: BP 113/63
[2020-03-02 08:00] VITALS: BP 113/63
[2020-03-02 19:54] VITALS: BP 139/70
[2020-03-03 08:13] VITALS: BP 166/80
[2020-03-03 19:54] VITALS: BP 127/77
[2020-03-04 08:32] VITALS: BP 137/69
[2020-03-04 20:00] VITALS: BP 144/59
[2020-03-05 08:00] VITALS: BP 128/72
[2020-03-05 19:00] VITALS: BP 133/53
[2020-03-06 08:30] VITALS: BP 138/76
[2020-03-06 19:27] VITALS: BP 130/63
[2020-03-07 07:00] VITALS: BP 128/62
[2020-03-07 08:00] VITALS: BP 128/62
[2020-03-07 19:00] VITALS: BP 146/62
[2020-03-08 07:30] VITALS: BP 129/75
[2020-03-08 19:00] VITALS: BP 148/67
[2020-03-09 07:30] VITALS: BP 115/82
[2020-03-09 19:00] VITALS: BP 129/75
[2020-03-10 08:00] VITALS: BP 120/77
[2020-03-10 12:29] VITALS: BP 120/77
[2020-03-10] MEDS ORDERED: NEURONTIN 300M300 M2 PO (12:46)
[2020-03-10] MEDS ORDERED: NEURONTIN100 MG PO (12:47)
[2020-03-10] MEDS ORDERED: MAG-OXIDE400 MG PO (12:49)
[2020-03-10] MEDS ORDERED: NAPRELAN375 MG PO (12:50)
[2020-03-10] MEDS ORDERED: VITAMIN B-1100 M2 PO (12:51)
[2020-03-10] MEDS ORDERED: ZINC SULFATE220 MG PO (12:52)
[2020-03-10 12:53] VITALS: BP 120/77
[2020-03-10 16:16] VITALS: BP 120/77
== END 2020-03-10 15:00 | disposition home or self-care (01) | DRG 40 ==
LOC: M.REH 19:04
PROVIDERS: Family Medicine; Internal Medicine; Nurse Practitioner; Psychiatry & Neurology Neuromuscular Medicine; ADMIT Physical Medicine & Rehabilitation; ATTEND Physical Medicine & Rehabilitation
PROC: 0KBS0ZZ Excision of Right Lower Leg Muscle, Open Approach (ICD-10-PCS; principal; 2020-02-05)
DX: G72.81 Critical illness myopathy (principal); L89.893 Pressure ulcer of other site, stage 3; G93.41 Metabolic encephalopathy; E43 Unspecified severe protein-calorie malnutrition; A41.9 Sepsis, unspecified organism; F10.239 Alcohol dependence with withdrawal, unspecified; N17.9 Acute kidney failure, unspecified; E27.40 Unspecified adrenocortical insufficiency; D62 Acute posthemorrhagic anemia; L03.116 Cellulitis of left lower limb; L03.115 Cellulitis of right lower limb; E87.2 Acidosis; N39.0 Urinary tract infection, site not specified; I42.9 Cardiomyopathy, unspecified; I10 Essential (primary) hypertension; F17.210 Nicotine dependence, cigarettes, uncomplicated; M47.816 Spondylosis without myelopathy or radiculopathy, lumbar region; I95.1 Orthostatic hypotension; F10.20 Alcohol dependence, uncomplicated; Y90.9 Presence of alcohol in blood, level not specified; R53.81 Other malaise; I25.9 Chronic ischemic heart disease, unspecified; K75.81 Nonalcoholic steatohepatitis (NASH); F44.4 Conversion disorder with motor symptom or deficit; E87.6 Hypokalemia; E83.42 Hypomagnesemia; K70.0 Alcoholic fatty liver; M17.11 Unilateral primary osteoarthritis, right knee; K29.70 Gastritis, unspecified, without bleeding; G25.81 Restless legs syndrome; L89.312 Pressure ulcer of right buttock, stage 2; G62.9 Polyneuropathy, unspecified; I73.9 Peripheral vascular disease, unspecified; W01.0XXA Fall on same level from slipping, tripping and stumbling without subsequent striking against object, initial encounter; Y93.01 Activity, walking, marching and hiking; Y92.238 Other place in hospital as the place of occurrence of the external cause; Z68.23 Body mass index [BMI] 23.0-23.9, adult; Y99.8 Other external cause status